=== PATIENT | male | born 1980 | race Caucasian/White ===

== ENCOUNTER 2017-07-03 09:15 | Emergency (ER) | payer SELFPAY ==
[~2017-07-03 09:15] MED LIST: ASPI-1017 PO; CITA-141 PO; CITA-156 PO; DOCU-416 PO; HYDR-4309 PO; IBU800 PO; LIDO20SO MM; LOR5/325 PO; MULT-1177 PO; MULT-7 PO; OME20PT PO; OXYC5CAP21 PO; PAR20 PO; PEN250 PO; PER PO; TRA50 GT; TRAM-627 PO
--- NOTE | 2017-07-03 09:40 | ER Report ---
History and Physical Time Seen By MD: 09:40 Hx. of Stated Complaint: PATIENT REPORTS THAT HE NEEDS TO DETOX FROM ALCOHOL. HE REPORTS THAT HIS LAST DRINK WAS ABOUT AN HOUR BEFORE ARRIVAL TO ER HPI/ROS CHIEF COMPLAINT: I need detox HISTORY OF PRESENT ILLNESS: 37-year-old male, father of 4 children reports alcohol use since age 14 drinks approximately one plane of vodka per night and wakes up without a hangover. He is concerned for the welfare of his kids and would like to get clean from alcohol. He denies any other drugs. He states one of his children has disability problems and is very difficult to manage at home. He states he has not worked in over 6 years. He has full custody of his kids and would like to be the best father he can be. He has been the detox and rehabilitation before but it has not worked. He is here for detox today and denies other medical complaints. His last drink was approximate 2 hours prior to arrival. He usually drinks vodka as he understands that to be the cleanest form of alcohol and produces less of a hangover. No other concerns or complaints today. REVIEW OF SYSTEMS: Constitutional: No fever, no chills. Eyes: No discharge. ENT: No sore throat. Cardiovascular: No chest pain, no palpitations. Respiratory: No cough, no shortness of breath. Gastrointestinal: No abdominal pain, no vomiting. Genitourinary: No hematuria. Musculoskeletal: No back pain. Skin: No rashes. Neurological: No headache. Allergies: Coded Allergies: acetaminophen (Verified Adverse Reaction, Intermediate, ITCHING, 01/13/17) hydrocodone (Verified Adverse Reaction, Intermediate, ITCHING, 01/13/17) Home Meds Reported Medications Multivits,Ca,Minerals/Iron/FA (Thera M Plus Tablet) 1 Each Tablet, 1 TAB PO DAILY 01/15/17 Citalopram Hydrobromide (CITALOPRAM HBR) 40 Mg Tablet, 40 MG PO QDAY, #5 TAB 01/15/17 Hx Smoking: Yes Smoking Status: Current: Every Day Smoker Exposure to Second Hand Smoke?: No Hx Substance Use Disorder: No Hx Alcohol Use: Yes (1 PINT DAILY) Constitutional Vital Sign - Last 24 Hours 07/03/17 09:22 Temp 98.5 Pulse 106 Resp 20 B/P (MAP) 154/106 Pulse Ox 92 O2 Delivery Room Air Physical Exam General Appearance: The patient is alert, has no immediate need for airway protection and no signs of toxicity. No acute distress Eyes: Pupils equal and round no pallor or injection. ENT, Mouth: Mucous membranes are moist. Respiratory: There are no retractions, lungs are clear to auscultation. Cardiovascular: Regular rate and rhythm. No murmurs gallops or rubs Gastrointestinal: Abdomen is soft and non tender, no masses, bowel sounds normal. Neurological: Normal exam Skin: Warm and dry, no rashes. Musculoskeletal: Neck is supple non tender. Extremities are nontender, nonswollen and have full range of motion. No edema DIFFERENTIAL DIAGNOSIS: After history and physical exam differential diagnosis was considered for alcohol dependence, alcohol intoxication, polysubstance abuse not suspected at this time. No signs of acute alcohol withdrawal at this time. Medical Decision Making Data Points Result Diagram: 07/03/17 0938 07/03/17 0938 Laboratory Hematology Test 07/03/17 09:19 07/03/17 09:38 Urine Color Yellow Urine Clarity Clear Urine pH 5.0 pH (4.8-9.5) Urine Specific [place] 1.018 Urine Protein 30 mg/dL (NEGATIVE) Urine Glucose (UA) Negative mg/dL (NEGATIVE) Urine Ketones 20 mg/dL (NEGATIVE) Urine Blood Small (NEGATIVE) Urine Nitrite Negative (NEGATIVE) Urine Bilirubin Negative (NEGATIVE) Urine Urobilinogen Negative mg/dL (0.2-1.9) Urine Leukocyte Esterase Negative (NEGATIVE) Urine RBC <1 /HPF (0-2/HPF) Urine WBC 3 /HPF (0-5/HPF) Urine Squamous Epithelial Cells Few /LPF (</=FEW) Urine Bacteria Negative /HPF (NONE-FEW) Urine Hyaline Casts Few /LPF (NONE-FEW) Urine Mucus Few /HPF (NONE-FEW) Urine Opiates Screen Negative Urine Barbiturates Screen Negative Ur Tricyclic Antidepressants Screen Negative Urine Phencyclidine Screen Negative Urine Amphetamines Screen Negative Urine Benzodiazepines Screen Negative Urine Cocaine Screen Negative Urine Cannabinoids Screen Positive Red Blood Count 5.42 M/uL (4.00-5.60) Mean Corpuscular Volume 97.3 fL (80.0-96.0) Mean Corpuscular Hemoglobin 33.5 pg (26.0-33.0) Mean Corpuscular Hemoglobin Concent 34.5 g/dL (32.0-36.0) Red Cell Distribution Width 14.5 % (11.5-14.5) Mean Platelet Volume 9.0 fL (7.2-11.1) Neutrophils (%) (Auto) 76.8 % (39.4-72.5) Lymphocytes (%) (Auto) 15.0 % (17.6-49.6) Monocytes (%) (Auto) 6.4 % (4.1-12.4) Eosinophils (%) (Auto) 1.1 % (0.4-6.7) Basophils (%) (Auto) 0.7 % (0.3-1.4) Nucleated RBC Relative Count (auto) 0.0 /100WBC Neutrophils # (Auto) 9.9 K/uL (2.0-7.4) Lymphocytes # (Auto) 1.9 K/uL (1.3-3.6) Monocytes # (Auto) 0.8 K/uL (0.3-1.0) Eosinophils # (Auto) 0.1 K/uL (0.0-0.5) Basophils # (Auto) 0.1 K/uL (0.0-0.1) Nucleated RBC Absolute Count (auto) 0.01 K/uL Sodium Level 141 mmol/L (137-145) Potassium Level 3.7 mmol/L (3.5-5.0) Chloride Level 100 mmol/L (98-107) Carbon Dioxide Level 22 mmol/L (22-30) Blood Urea Nitrogen 10 mg/dl (9-21) Creatinine 0.80 mg/dl (0.66-1.25) Glomerular Filtration Rate Calc > 60.0 Random Glucose 86 mg/dl (75-110) Calcium Level 9.0 mg/dl (8.4-10.2) Total Bilirubin 0.6 mg/dl (0.2-1.3) Aspartate Amino Transf (AST/SGOT) 59 U/L (0-35) Alanine Aminotransferase (ALT/SGPT) 115 U/L (0-56) Alkaline Phosphatase 121 U/L (0-126) Total Protein 8.1 gm/dl (6.3-8.2) Albumin 4.6 g/dl (3.5-5.0) Lipase 274 U/L (23-300) Salicylates Level < 10 mg/L Salicylate Last Dose Date unknown Acetaminophen Level < 10 ug/ml Serum Alcohol 208 mg/dl Chemistry Test 07/03/17 09:19 07/03/17 09:38 Urine Color Yellow Urine Clarity Clear Urine pH 5.0 pH (4.8-9.5) Urine Specific [place] 1.018 Urine Protein 30 mg/dL (NEGATIVE) Urine Glucose (UA) Negative mg/dL (NEGATIVE) Urine Ketones 20 mg/dL (NEGATIVE) Urine Blood Small (NEGATIVE) Urine Nitrite Negative (NEGATIVE) Urine Bilirubin Negative (NEGATIVE) Urine Urobilinogen Negative mg/dL (0.2-1.9) Urine Leukocyte Esterase Negative (NEGATIVE) Urine RBC <1 /HPF (0-2/HPF) Urine WBC 3 /HPF (0-5/HPF) Urine Squamous Epithelial Cells Few /LPF (</=FEW) Urine Bacteria Negative /HPF (NONE-FEW) Urine Hyaline Casts Few /LPF (NONE-FEW) Urine Mucus Few /HPF (NONE-FEW) Urine Opiates Screen Negative Urine Barbiturates Screen Negative Ur Tricyclic Antidepressants Screen Negative Urine Phencyclidine Screen Negative Urine Amphetamines Screen Negative Urine Benzodiazepines Screen Negative Urine Cocaine Screen Negative Urine Cannabinoids Screen Positive White Blood Count 12.8 k/uL (4.5-11.0) Red Blood Count 5.42 M/uL (4.00-5.60) Hemoglobin 18.2 g/dL (14.0-18.0) Hematocrit 52.8 % (42.0-52.0) Mean Corpuscular Volume 97.3 fL (80.0-96.0) Mean Corpuscular Hemoglobin 33.5 pg (26.0-33.0) Mean Corpuscular Hemoglobin Concent 34.5 g/dL (32.0-36.0) Red Cell Distribution Width 14.5 % (11.5-14.5) Platelet Count 258 K/uL (150-450) Mean Platelet Volume 9.0 fL (7.2-11.1) Neutrophils (%) (Auto) 76.8 % (39.4-72.5) Lymphocytes (%) (Auto) 15.0 % (17.6-49.6) Monocytes (%) (Auto) 6.4 % (4.1-12.4) Eosinophils (%) (Auto) 1.1 % (0.4-6.7) Basophils (%) (Auto) 0.7 % (0.3-1.4) Nucleated RBC Relative Count (auto) 0.0 /100WBC Neutrophils # (Auto) 9.9 K/uL (2.0-7.4) Lymphocytes # (Auto) 1.9 K/uL (1.3-3.6) Monocytes # (Auto) 0.8 K/uL (0.3-1.0) Eosinophils # (Auto) 0.1 K/uL (0.0-0.5) Basophils # (Auto) 0.1 K/uL (0.0-0.1) Nucleated RBC Absolute Count (auto) 0.01 K/uL Glomerular Filtration Rate Calc > 60.0 Calcium Level 9.0 mg/dl (8.4-10.2) Total Bilirubin 0.6 mg/dl (0.2-1.3) Aspartate Amino Transf (AST/SGOT) 59 U/L (0-35) Alanine Aminotransferase (ALT/SGPT) 115 U/L (0-56) Alkaline Phosphatase 121 U/L (0-126) Total Protein 8.1 gm/dl (6.3-8.2) Albumin 4.6 g/dl (3.5-5.0) Lipase 274 U/L (23-300) Salicylates Level < 10 mg/L Salicylate Last Dose Date unknown Acetaminophen Level < 10 ug/ml Serum Alcohol 208 mg/dl Toxicology Test 07/03/17 09:19 3 09:38 Urine Opiates Screen Negative Urine Barbiturates Screen Negative Ur Tricyclic Antidepressants Screen Negative Urine Phencyclidine Screen Negative Urine Amphetamines Screen Negative Urine Benzodiazepines Screen Negative Urine Cocaine Screen Negative Urine Cannabinoids Screen Positive Salicylates Level < 10 mg/L Salicylate Last Dose Date unknown Acetaminophen Level < 10 ug/ml Serum Alcohol 208 mg/dl Urinalysis Test 07/03/17 09:19 Urine Color Yellow Urine Clarity Clear Urine pH 5.0 pH (4.8-9.5) Urine Specific [place] 1.018 Urine Protein 30 mg/dL (NEGATIVE) Urine Glucose (UA) Negative mg/dL (NEGATIVE) Urine Ketones 20 mg/dL (NEGATIVE) Urine Blood Small (NEGATIVE) Urine Nitrite Negative (NEGATIVE) Urine Bilirubin Negative (NEGATIVE) Urine Urobilinogen Negative mg/dL (0.2-1.9) Urine Leukocyte Esterase Negative (NEGATIVE) Urine RBC <1 /HPF (0-2/HPF) Urine WBC 3 /HPF (0-5/HPF) Urine Squamous Epithelial Cells Few /LPF (</=FEW) Urine Bacteria Negative /HPF (NONE-FEW) Urine Hyaline Casts Few /LPF (NONE-FEW) Urine Mucus Few /HPF (NONE-FEW) ED Course/Re-evaluation ED Course Medically cleared in the ED; accepted for admission by Dr. Mora; plan is for detox Decision to Disposition Date: Jul 03, 2017 Decision to Disposition Time: 11:00 Depart Departure Latest Vital Signs Vital Signs Date Time Temp Pulse Resp B/P (MAP) Pulse Ox O2 Delivery O2 Flow Rate FiO2 07/03/17 09:22 98.5 106 20 154/106 92 Room Air Impression: Primary Impression: Alcohol use disorder, severe, dependence Condition: Improved Disposition: XFER TO [facility] FORTINO ZEE MD Jul 03, 2017 09:40
[2017-07-03] MEDS ORDERED: THIAMINE HCL(*) 200 MG/2 ML IN 100 MG, FOLIC ACID(*) 50 MG/10 ML INJ 1 MG, MULTIVITAMIN... IV ONE (10:00)
[2017-07-03 10:08] LABS: PLATELET COUNT, AUTOMATED 258 K/uL (150-450)
[2017-07-03 11:00] VITALS: BP 121/90
== END 2017-07-03 11:22 ==
LOC: ER 09:31
DX: F10.229 Alcohol dependence with intoxication, unspecified (principal)
CPT/HCPCS: 80305; 80320; 80329; 81001; 83690; 84443; 85025; 96365; 99285; J3411; J7030; 82040; 82247; 82310; 82374; 82435; 82565; 82947; 84075; 84132; 84155; 84295; 84450; 84460; 84520

== ENCOUNTER 2017-07-03 11:02 | Inpatient (IN) | payer SELFPAY ==
[~2017-07-03] VITALS: Ht 170.2 cm; Wt 83.9 kg
[2017-07-03 11:41] VITALS: BP 138/94
[2017-07-03] MEDS ORDERED: MAG HYD/AL HYD/SIMETH 30ML UDC PO PRN (11:50)
[2017-07-03] MEDS: DIAZEPAM 20 MG PER CIWA PROTOCOL PO PRN ×2 (16:17→21:45)
[2017-07-03] MEDS ORDERED: CITALOPRAM HYDROBROM 20 MG TAB PO ONE (18:05)
[2017-07-04 04:00] VITALS: BP 142/89
[2017-07-04] MEDS: DIAZEPAM 20 MG PER CIWA PROTOCOL PO PRN (04:10)
[2017-07-04 08:05] VITALS: BP 154/83
[2017-07-04] MEDS: THIAMINE HCL 100 MG TAB PO SCH (08:25)
[2017-07-04] MEDS: MULTIVITAMINS PO SCH (08:25)
[2017-07-04] MEDS: FOLIC ACID 1 MG TAB PO SCH (08:25)
[2017-07-04] MEDS: CITALOPRAM HYDROBROM 20 MG TAB PO SCH (08:26)
[2017-07-04 12:00] VITALS: BP 140/88
[2017-07-04 16:20] VITALS: BP 134/98
[2017-07-05 01:30] VITALS: BP 138/94
[2017-07-05] MEDS: FOLIC ACID 1 MG TAB PO SCH (08:21)
[2017-07-05] MEDS: CITALOPRAM HYDROBROM 20 MG TAB PO SCH (08:21)
[2017-07-05] MEDS: THIAMINE HCL 100 MG TAB PO SCH (08:21)
[2017-07-05] MEDS: MULTIVITAMINS PO SCH (08:21)
[2017-07-05 08:30] VITALS: BP 124/92
--- NOTE | 2017-07-05 09:36 | BHS Progress Note ---
[facility] - Subjective Progress Notes Subjective Patient continues in alcohol withdrawal, which appears mild up until this point. Mood reported good, interacting well with treatment team staff, and his Mother present. No other concerns today, will plan for discharge tomorrow, after alcohol withdrawal is complete. Will work to establish effective outpatient care today. Suicidal Ideation: None Homicidal Ideation: None [facility] - Objective Physical Exam Vital Signs Vital Signs Date Time Temp Pulse Resp B/P (MAP) Pulse Ox O2 Delivery O2 Flow Rate FiO2 07/05/17 08:30 98.5 79 16 124/92 (103) 97 Room Air Hematology Test 07/04/17 11:20 Chemistry Test 07/04/17 11:20 Muscle Strength and Tone: WNL Gait and Station: Steady [facility] Medications Reviewed: Side Effects, Benefits of Medication, Risks Allergies Reviewed: Yes Mental Status Exam General Appearance: Casual, Well Groomed, Good Eye Contact, Cooperative, Polite , Good Interaction, No Unkept, No Tearful, No Psychomotor Agitation, No Psychomotor Retardation, No Bizarre Mannerisms, No Tics Speech: Clear, Spontaneous, Normal Rate, Normal Rhythm, Normal Volume, Normal Tone, No Garbled, No Rambling, No Inappropriate Mood: Euthymic Affect: Full and Appropriate, Calm, No Tearful, No Anxious, No Agitated Thought Process: Organized, Logical, Goal Directed, No Loose Associations, No Flight of Ideas Thought Content: No Suicidal Ideation, No Homicidal Ideation, No Delusions, No Auditory Halllucinations, No Visual Hallucinations, No Thought Broadcasting, No Ideas of Reference, No Obsessions, No Compulsions Sensorium: Clear Cognition: Alert & Oriented-Person, Alert & Oriented-Place, Alert & Oriented- Time, Xyryj-[id number]-Ovwbwhvun Memory: Immediate, Recent, Remote Intelligence: Average Insight Judgment: Fair (some maladaptive stress coping mechanisms certainly exist, rule out personality disorder. ) [facility] Assessment and Plan [id number] Encounter Date: Jul 05, 2017 [id number] Encounter Time: 09:20 [facility] Plan: Necessary Precautions, Individual/Group Therapy, Admin/Titrate Meds, Educate Patient Tobacco Medications: Started Multpiple Antipsychotics Used: No Problems: (1) Alcohol withdrawal Status: Acute (2) Alcohol use disorder, severe, dependence Status: Chronic (3) Cannabis use disorder, moderate, dependence Condition 1. continue treatment. 2. plan for discharge tomorrow. 3. outpatient care. Problem Qualifiers (1) Alcohol withdrawal: Complication of substance-induced condition: uncomplicated Qualified Codes: F10.230 - Alcohol dependence with withdrawal, uncomplicated FLEX TINSLEY MD Jul 05, 2017 09:36
[2017-07-05 12:40] VITALS: BP 140/98
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
[2017-07-06 04:30] VITALS: BP 136/107
[2017-07-06] MEDS: FOLIC ACID 1 MG TAB PO SCH (08:21)
[2017-07-06] MEDS: CITALOPRAM HYDROBROM 20 MG TAB PO SCH (08:21)
[2017-07-06] MEDS: THIAMINE HCL 100 MG TAB PO SCH (08:21)
[2017-07-06] MEDS: MULTIVITAMINS PO SCH (08:21)
[2017-07-06] MEDS ORDERED: FOLI-68 PO (10:19)
[2017-07-06] MEDS ORDERED: THIA100T2 PO (10:20)
--- NOTE | 2017-07-07 23:12 | DISCHARGE SUMMARY ---
DATE OF ADMISSION: July 03, 2017 DATE OF DISCHARGE: July 06, 2017 This patient was seen concerning this dictation on the June at approximately 1030 hours. FINAL DIAGNOSES PER DSM-V 1. Alcohol use disorder, moderate to severe. 2. Cannabis use disorder, moderate. 3. History of persisting depressive disorder. 4. Social stressors. REASON FOR ADMISSION This is an overall polite, 37-year-old male who is suffering from alcohol use disorder. The primary reason for the patient's admit was alcohol withdrawal. This was treated to completion with diazepam for [facility] protocol. It was minimal to moderate in nature. The patient continued to take an active role in his treatment overall. The patient at times was interacting at a very immature level overall regarding age. The patient had not worked in over a decade. The patient is relying on government support. The patient continued to improve. The patient indicated the desire to continue to abstain and would attend IOP at [facility] as well as therapy and medication management. He was given the crisis line should symptoms return. PHYSICAL EXAMINATION Please see emergency room note. Notable for: GENERAL: A 37-year-old male in no acute medical distress. VITAL SIGNS: At time of admission, temperature 98.5, pulse 106, respiratory rate 20, blood pressure 154/106, and pulse oximetry 92% on room air. At time of discharge from the Behavioral Health Unit, vital signs showed temperature 98.0, pulse 61, respiratory rate 15, blood pressure 136/107, and pulse oximetry 92% on room air. LABORATORY DATA At time of admission, CBC was notable for white blood cells elevated at 12.8, hemoglobin and hematocrit elevated at 18.2 and 52.8 respectively, MCV 97.3, and MCH 33.5 and elevated. Chemistry panel was notable for AST elevated at 59 and ALT elevated at 115. TSH was 1.08. Urinalysis did have trace ketones present, and some urine protein present as well. Toxicology screen positive for cannabis. Serum alcohol level was 208 upon admission. Negative for other substances of abuse. PPD was negative. MENTAL STATUS EXAMINATION AT TIME OF DISCHARGE GENERAL APPEARANCE, BEHAVIOR, AND ATTITUDE: Polite, cooperative, 37-year-old male, well groomed, appeared stated age. No psychomotor agitation or retardation. No bizarre mannerisms or tics. The patient continued to interact in a general infantile manner concerning life responsibilities throughout stay; however, the patient was very calm, pleasant, and cooperative, and he was taking an active role in his treatment. No periods of tearfulness at time of discharge. SPEECH: Within normal limits. Regular rate, rhythm, volume, and tone. MOOD: Described as good. AFFECT: Full and bright. THOUGHT PROCESSES: Logical, goal directed. No loose associations or flight of ideas. THOUGHT CONTENT: Free of auditory or visual hallucinations, ideas of reference , thought broadcasting, delusions, obsessions, or compulsions. The patient is adamantly denying suicidal or homicidal ideation. SENSORIUM: Clear. COGNITION: Alert and oriented to person, place, time, and situation. MEMORY: Immediate, recent, and remote estimated intact. INTELLIGENCE: Average based on interview. INSIGHT AND JUDGMENT: Considered grossly intact in the absence of alcohol or cannabis use. RESULTS OF TESTING IMAGING: None. LABORATORY DATA: See above. CONSULTATIONS None. TREATMENT The patient received medications and participated in individual and group therapy. HOSPITAL COURSE The patient's alcohol withdrawal was considered minimal in nature overall. It was treated to completion with diazepam per [facility] protocol. The patient continued to improve. The patient remained on outpatient dose of Celexa at 40 mg p.o. q.a.m. with good results. The patient did take an active role, engaging with individual and group therapy. CONDITION OF PATIENT ON DISCHARGE Stable. Considered a minimal risk to himself or others and appropriate for outpatient care in the absence of alcohol or cannabis use. DISPOSITION The patient was discharged to home. He would follow up with [facility] at [facility] for therapy and medication management. He was given the crisis line should symptoms return. He agreed to abstain from all alcohol and illicit substances and would take Celexa 40 mg p.o. q.a.m. Risks, benefits, and alternatives of above discharge plan were discussed. Informed consent was given to proceed with above discharge plan by this competent patient. JOHN PAUL
== END 2017-07-06 11:10 | disposition home or self-care (01) | DRG 897 ==
LOC: BHS 11:02
PROVIDERS: ADMIT Psychiatry & Neurology Psychiatry; ATTEND Psychiatry & Neurology Psychiatry
DX: F10.230 Alcohol dependence with withdrawal, uncomplicated (principal); F34.1 Dysthymic disorder; F12.20 Cannabis dependence, uncomplicated; Y90.7 Blood alcohol level of 200-239 mg/100 ml; Z62.810 Personal history of physical and sexual abuse in childhood; Z88.5 Allergy status to narcotic agent; Z91.410 Personal history of adult physical and sexual abuse
CPT/HCPCS: 86580; 90853

== ENCOUNTER 2017-07-26 18:56 | Emergency (ER) | payer SELFPAY ==
[~2017-07-26 18:56] MED LIST changes: +FOLI-68 PO; +THIA100T2 PO
[2017-07-26] MEDS ORDERED: ASPIRIN 81 MG CHEW PO ONE (19:40)
--- NOTE | 2017-07-26 19:40 | ER Report ---
History and Physical Time Seen By MD: 19:26 Hx. of Stated Complaint: PT REPORTS THAT HE IS GOING THROUGH [facility]. HAS NOT HAD ANY ALCOHOL SINCE LAST MONDAY. REPORTS CHEST PAIN, VISUAL HALLUCINATIONS, AND MUSCLE ACHES. HPI/ROS CHIEF COMPLAINT: Chest pain HISTORY OF PRESENT ILLNESS: 37-year-old male patient presents to emergency room with complaint of chest pain. Patient states that he isn't alcoholic, he recently got discharged from [facility] with detox. He states that he was doing well until last week. He states he had 2 days raise drinking a pint of hard liquor a day. Patient states that he went and saw IOP through [facility] today. They recommended he come up here because he is complaining of chest pain. Patient states he has chest pain that is substernal he rates a 5 out of 10. He states it is improved is currently 2 out of 10. States been going on for last couple of days. He denies having any shortness of breath. He states he has had some nausea and vomiting. Patient is concerned that he may have pancreatitis. He is not taking any medication for this. He states that he does not want to be admitted for alcohol detox to [facility]. REVIEW OF SYSTEMS: Respiratory: No cough, no dyspnea. Cardiovascular: As noted above Gastrointestinal: Patient has had some episodes of vomiting. Musculoskeletal: No back pain. Allergies: Coded Allergies: acetaminophen (Verified Adverse Reaction, Intermediate, ITCHING, 07/26/17) hydrocodone (Verified Adverse Reaction, Intermediate, ITCHING, 07/26/17) Home Meds Active Scripts Omeprazole (OMEPRAZOLE) 40 Mg Capsule., 40 MG PO QDAY, #15 CAP Prov:BANDAR VILLASENOR 07/26/17 Reported Medications Thiamine Mononitrate (VITAMIN B-1) 100 Mg Tablet, 100 MG PO Purchase over the counter. Take for 1 month 07/06/17 Folic Acid (FOLIC ACID) 1 Mg Tablet, 1 MG PO QDAY, TAB Purchase over the counter. Take for 1 month 07/06/17 Multivits,Ca,Minerals/Iron/FA (Thera M Plus Tablet) 1 Each Tablet, 1 TAB PO DAILY 01/15/17 Citalopram Hydrobromide (CITALOPRAM HBR) 40 Mg Tablet, 40 MG PO QDAY, #30 TAB 1 Refill 01/15/17 Past Medical/Surgical History Patient has a past medical history of asthma, pancreatitis, fractured feet, psoriasis, alcohol abuse, depression, anxiety. Patient has a surgical history of hernia repair, cyst removed from armpit, back , chest. Patient has a family medical history of CAD. Reviewed Nurses Notes: Yes Hx Smoking: No Smoking Status: Current: Every Day Smoker Exposure to Second Hand Smoke?: No Hx Substance Use Disorder: No Hx Alcohol Use: Yes Constitutional Vital Sign - Last 24 Hours 07/26/17 07/26/17 07/26/17 07/26/17 19:01 19:15 19:30 19:45 Temp 98.2 Pulse 57 60 60 59 Resp 16 17 16 16 B/P (MAP) 129/93 Pulse Ox 93 94 93 91 O2 Delivery Room Air 07/26/17 07/26/17 07/26/17 07/26/17 20:00 20:15 20:30 20:45 Pulse 60 61 59 61 Resp 15 13 16 16 B/P (MAP) 120/70 (87) Pulse Ox 93 94 93 93 07/26/17 07/26/17 07/26/17 21:00 21:15 21:19 Pulse 54 Resp 16 15 B/P (MAP) 122/85 (97) Pulse Ox 95 Physical Exam General Appearance: The patient is alert, has no immediate need for airway protection and no current signs of toxicity. ENT: Tympanic membranes are pearly-cantu, auditory canals are patent, mucous membranes are moist. Respiratory: Chest is non tender, lungs are clear to auscultation. Cardiac: regular rate and rhythm Gastrointestinal: Abdomen is soft and tender in the epigastric region, no masses , bowel sounds normal. Musculoskeletal: Neck: Neck is supple and non tender. Extremities have full range of motion and are non tender. Skin: No rashes or lesions. DIFFERENTIAL DIAGNOSIS: After history and physical exam differential diagnosis was considered for chest pain including but not limited to myocardial ischemia, pericarditis pulmonary embolus, chest wall pain, pleural inflammation and pulmonary infectious causes. The differential is pancreatitis, alcohol intoxication, alcohol induced gastritis. Medical Decision Making Data Points Result Diagram: 07/26/17201807/26/172018 Laboratory Hematology Test 07/26/17 20:19 Red Blood Count 5.13 M/uL (4.00-5.60) Mean Corpuscular Volume 96.9 fL (80.0-96.0) Mean Corpuscular Hemoglobin 33.9 pg (26.0-33.0) Mean Corpuscular Hemoglobin Concent 34.9 g/dL (32.0-36.0) Red Cell Distribution Width 14.2 % (11.5-14.5) Mean Platelet Volume 9.7 fL (7.2-11.1) Neutrophils (%) (Auto) 72.6 % (39.4-72.5) Lymphocytes (%) (Auto) 16.8 % (17.6-49.6) Monocytes (%) (Auto) 7.6 % (4.1-12.4) Eosinophils (%) (Auto) 2.4 % (0.4-6.7) Basophils (%) (Auto) 0.6 % (0.3-1.4) Nucleated RBC Relative Count (auto) 0.0 /100WBC Neutrophils # (Auto) 6.7 K/uL (2.0-7.4) Lymphocytes # (Auto) 1.6 K/uL (1.3-3.6) Monocytes # (Auto) 0.7 K/uL (0.3-1.0) Eosinophils # (Auto) 0.2 K/uL (0.0-0.5) Basophils # (Auto) 0.1 K/uL (0.0-0.1) Nucleated RBC Absolute Count (auto) 0.00 K/uL Sodium Level 136 mmol/L (137-145) Potassium Level 3.8 mmol/L (3.5-5.0) Chloride Level 100 mmol/L (98-107) Carbon Dioxide Level 29 mmol/L (22-30) Blood Urea Nitrogen 10 mg/dl (9-21) Creatinine 0.90 mg/dl (0.66-1.25) Glomerular Filtration Rate Calc > 60.0 Random Glucose 92 mg/dl (75-110) Calcium Level 9.4 mg/dl (8.4-10.2) Total Bilirubin 0.6 mg/dl (0.2-1.3) Aspartate Amino Transf (AST/SGOT) 60 U/L (0-35) Alanine Aminotransferase (ALT/SGPT) 71 U/L (0-56) Alkaline Phosphatase 71 U/L (0-126) Troponin I < 0.012 ng/ml Total Protein 7.4 gm/dl (6.3-8.2) Albumin 4.1 g/dl (3.5-5.0) Amylase Level 80 U/L (0-110) Lipase 298 U/L (23-300) Serum Alcohol < 10 mg/dl Chemistry Test 07/26/17 20:19 White Blood Count 9.3 k/uL (4.5-11.0) Red Blood Count 5.13 M/uL (4.00-5.60) Hemoglobin 17.4 g/dL (14.0-18.0) Hematocrit 49.7 % (42.0-52.0) Mean Corpuscular Volume 96.9 fL (80.0-96.0) Mean Corpuscular Hemoglobin 33.9 pg (26.0-33.0) Mean Corpuscular Hemoglobin Concent 34.9 g/dL (32.0-36.0) Red Cell Distribution Width 14.2 % (11.5-14.5) Platelet Count 160 K/uL (150-450) Mean Platelet Volume 9.7 fL (7.2-11.1) Neutrophils (%) (Auto) 72.6 % (39.4-72.5) Lymphocytes (%) (Auto) 16.8 % (17.6-49.6) Monocytes (%) (Auto) 7.6 % (4.1-12.4) Eosinophils (%) (Auto) 2.4 % (0.4-6.7) Basophils (%) (Auto) 0.6 % (0.3-1.4) Nucleated RBC Relative Count (auto) 0.0 /100WBC Neutrophils # (Auto) 6.7 K/uL (2.0-7.4) Lymphocytes # (Auto) 1.6 K/uL (1.3-3.6) Monocytes # (Auto) 0.7 K/uL (0.3-1.0) Eosinophils # (Auto) 0.2 K/uL (0.0-0.5) Basophils # (Auto) 0.1 K/uL (0.0-0.1) Nucleated RBC Absolute Count (auto) 0.00 K/uL Glomerular Filtration Rate Calc > 60.0 Calcium Level 9.4 mg/dl (8.4-10.2) Total Bilirubin 0.6 mg/dl (0.2-1.3) Aspartate Amino Transf (AST/SGOT) 60 U/L (0-35) Alanine Aminotransferase (ALT/SGPT) 71 U/L (0-56) Alkaline Phosphatase 71 U/L (0-126) Troponin I < 0.012 ng/ml Total Protein 7.4 gm/dl (6.3-8.2) Albumin 4.1 g/dl (3.5-5.0) Amylase Level 80 U/L (0-110) Lipase 298 U/L (23-300) Serum Alcohol < 10 mg/dl Toxicology Test 07/26/17 20:19 Serum Alcohol < 10 mg/dl EKG/Imaging EKG Interpretation 12 lead EKG: Rhythm: normal sinus rhythm [place]: normal QRS: normal ST segments: normal Imaging 2 VIEWS CHEST INDICATION: Chest pain COMPARISON: 05/05/2016. FINDINGS: Cardiomediastinal silhouette and pulmonary vessels within normal limits. There is no focal infiltrate or lobar consolidation. There is no pneumothorax or pleural effusion. No nodule. Upper abdomen is unremarkable. No acute bony abnormality. IMPRESSION: 1. No acute cardiopulmonary process. Report Dictated By: Vinicio Maynard at 07/26/2017 8:29 PM Report E-Signed By: Vinicio Maynard at 07/26/2017 8:31 PM ED Course/Re-evaluation ED Course Patient was admitted to examine, history and physical were obtained. Differential diagnoses were considered. On examination patient had some epigastric abdominal pain. A CBC, CMP, amylase, lipase, troponin, EKG, chest x- ray were done. Chest x-ray was negative, EKG showed a normal sinus rhythm, lab results were negative. I discussed findings with the patient. I believe the patient's having epigastric pain which caused by an alcohol-induced gastritis. Patient had been sober for 3 weeks and then had a 2 day ren, weight is drinking a pint of vodka a day. I believe that caused his abdominal discomfort. We'll go ahead and start him on a PPI. He will receive Protonix to the emergency room and they will take omeprazole for the next 2 weeks. He is to follow-up with his primary care provider. He is return to the emergency room condition worsens. Patient verbalized understanding and agreement with plan. Decision to Disposition Date: Jul 26, 2017 Decision to Disposition Time: 21:15 Depart Departure Latest Vital Signs Vital Signs Date Time Temp Pulse Resp B/P (MAP) Pulse Ox O2 Delivery O2 Flow Rate FiO2 07/26/17 21:19 122/85 (97) 07/26/17 21:15 54 15 95 07/26/17 19:01 98.2 Room Air Impression: Primary Impression: Gastritis Condition: Improved Disposition: HOME OR SELF-CARE New Scripts Omeprazole (OMEPRAZOLE) 40 Mg Capsule. 40 MG PO QDAY, #15 CAP Prov: BANDAR VILLASENOR 07/26/17 Patient Instructions: Gastritis (ED) Additional Instructions: Increase fluid intake. Get plenty of rest. Follow up with your primary care provider in the next week. Return to the ER if condition worsens. Take medication as prescribed. Try a bland diet for the next 2-3 days. Problem Qualifiers Primary Impression: Gastritis Gastritis type: alcoholic Chronicity: acute Gastritis bleeding: without bleeding Qualified Codes: K29.20 - Alcoholic gastritis without bleeding BANDAR VILLASENOR Jul 26, 2017 19:40
--- NOTE | 2017-07-26 20:24 | EKG ---
FACILITY: [facility] [place] PATIENT NAME: SEAN WHITING : [id number] MR: [id number] V: [id number] EXAM DATE: ORDERING PHYSICIAN: BANDAR VILLASENOR TECHNOLOGIST: FATMATA Test Reason : CP Blood Pressure : / mmHG Vent. Rate : 060 BPM Atrial Rate : 060 BPM P-R Int : 146 ms QRS Dur : 084 ms QT Int : 434 ms P-R-T Axes : 039 -14 035 degrees QTc Int : 434 ms Normal sinus rhythm Nonspecific T wave abnormality Abnormal ECG When compared with ECG of 05-MAY-2016 13:19, No significant change was found Confirmed by RAMONITA GARCIA ([id number]) on 07/27/2017 2:18:04 PM Referred By: Confirmed By:RAMONITA GARCIA
[2017-07-26 20:28] LABS: PLATELET COUNT, AUTOMATED 160 K/uL (150-450)
--- NOTE | 2017-07-26 20:36 | RADIOLOGY IMAGING REPORT ---
FACILITY: [facility] [place] PATIENT NAME: Rashaad Nichole : 1980 MR: [id number] V: [id number] EXAM DATE: ORDERING PHYSICIAN: BANDAR VILLASENOR TECHNOLOGIST: Location: [facility] [place] Patient: Rashaad Nichole : 1980 Visit/Account:[id number] Date of Sevice: 07/26/2017 2 VIEWS CHEST INDICATION: Chest pain COMPARISON: 05/05/2016. FINDINGS: Cardiomediastinal silhouette and pulmonary vessels within normal limits. There is no focal infiltrate or lobar consolidation. There is no pneumothorax or pleural effusion. No nodule. Upper abdomen is unremarkable. No acute bony abnormality. IMPRESSION: 1. No acute cardiopulmonary process. Report Dictated By: Vinicio Maynard at 07/26/2017 8:29 PM Report E-Signed By: Vinicio Maynard at 07/26/2017 8:31 PM WSN:[id number]
[2017-07-26] MEDS ORDERED: OMEP40CA48 PO (21:14)
[2017-07-26] MEDS ORDERED: PANTOPRAZOLE SOD 40 MG TABEC PO ONE (21:15)
[2017-07-26 21:19] VITALS: BP 122/85
== END 2017-07-26 21:21 | disposition home or self-care (01) ==
LOC: ER 19:14
DX: K29.20 Alcoholic gastritis without bleeding (principal); R94.31 Abnormal electrocardiogram [ECG] [EKG]
CPT/HCPCS: 71046; 80320; 82040; 82150; 82247; 82310; 82374; 82435; 82565; 82947; 83690; 84075; 84132; 84155; 84295; 84450; 84460; 84484; 84520; 85025; 93005; 99284

== ENCOUNTER 2017-08-28 07:18 | Inpatient (IN) | payer MEDICAID ==
[~2017-08-28] VITALS: Ht 170.2 cm; Wt 77.6 kg
[~2017-08-28 07:18] MED LIST changes: +OMEP40CA48 PO
--- NOTE | 2017-08-28 07:22 | ER Report ---
History and Physical Time Seen By MD: 07:21 HPI/ROS CHIEF COMPLAINT: epigastric pain, concerned about pancreatitis HISTORY OF PRESENT ILLNESS: This is a 37 year old male. He has been having several days of epigastric abdominal pain. He has a history of alcoholic pancreatitis and gastritis in the past and was worried this was a repeat episode of pancreatitis. He had a binge of alcohol last week, last drink was on Monday. Had some vomiting and diarrhea prior to that. He denies any diarrhea the last few days, but has not really had much bowel movement. Only a small amount of urination over the last 24 hours and is dark. Has only been able to keep a small amount of PowerAid and water down. Not able to eat. Had also been taking Ibuprofen the last few days to try and help the pain. No blood in stools or emesis. No fevers, but he has had some chills. Denies chest pain. Denies shortness of breath. Allergies: Coded Allergies: acetaminophen (Verified Adverse Reaction, Intermediate, ITCHING, 07/26/17) hydrocodone (Verified Adverse Reaction, Intermediate, ITCHING, 07/26/17) Home Meds Active Scripts Omeprazole (OMEPRAZOLE) 40 Mg Capsule., 40 MG PO QDAY, #15 CAP Prov:JACKLYNBANDAR ANJALI 07/26/17 Reported Medications Ibuprofen (IBUPROFEN) 200 Mg Capsule, 1 CAP PO Q2H Y for PAIN, CAPSULE 08/28/17 Magnesium Oxide (MAGNESIUM) 250 Mg Tablet, 250 MG PO QDAY 08/28/17 Thiamine Mononitrate (VITAMIN B-1) 100 Mg Tablet, 100 MG PO Purchase over the counter. Take for 1 month 07/06/17 Folic Acid (FOLIC ACID) 1 Mg Tablet, 1 MG PO QDAY, TAB Purchase over the counter. Take for 1 month 07/06/17 Multivits,Ca,Minerals/Iron/FA (Thera M Plus Tablet) 1 Each Tablet, 1 TAB PO DAILY 01/15/17 Citalopram Hydrobromide (CITALOPRAM HBR) 40 Mg Tablet, 40 MG PO QDAY, #30 TAB 1 Refill 01/15/17 Reviewed Nurses Notes: Yes Hx Smoking: No Smoking Status: Current: Every Day Smoker Exposure to Second Hand Smoke?: No Hx Substance Use Disorder: No Hx Alcohol Use: Yes Constitutional Vital Sign - Last 24 Hours 08/28/17 08/28/17 08/28/17 08/28/17 07:23 07:30 08:00 08:08 Temp 97.8 Pulse 99 92 Resp 18 B/P (MAP) 148/105 126/101 (109) 138/126 (130) 162/109 (126) Pulse Ox 99 98 O2 Delivery Room Air 08/28/17 08/28/17 08/28/17 08/28/17 08:18 08:39 09:00 09:15 Pulse 67 63 B/P (MAP) 149/112 (124) 131/99 (110) Pulse Ox 98 98 O2 Flow Rate 2.0 08/28/17 08/28/17 08/28/17 08/28/17 09:20 09:25 09:30 09:35 Pulse 64 ??? 66 60 B/P (MAP) 133/95 (108) Pulse Ox 98 100 98 98 08/28/17 08/28/17 09:40 09:41 Pulse 64 B/P (MAP) 120/94 (103) Pulse Ox 98 Physical Exam General Appearance: The patient is alert. He is in some acute distress because of pain and nausea. Eyes: Pupils are equal, round. No pallor, injection or icterus. ENT: Mucous membranes are moist. Normal oral mucosa. Posterior oropharynx is normal. Neck: Supple and non tender. Respiratory: Lungs are clear to auscultation. Cardiovascular: Regular rate and rhythm. No murmurs, gallops or rubs. Normal capillary refill. Gastrointestinal: Abdomen is soft, but tender in epigastric area. Nondistended. No rebound or guarding. Normal active bowel sounds. No costovertebral angle tenderness with percussion. Neurological: Alert and oriented x3. No focal neurologic deficits Skin: Warm and dry. DIFFERENTIAL DIAGNOSIS: After history and physical exam, differential diagnosis was considered for epigastric pain including but not limited to biliary colic, cholecystitis, peptic ulcer disease, pancreatitis, and gastroenteritis. Medical Decision Making Data Points Result Diagram: 08/28/17 0727 08/28/17 0727 Laboratory Hematology Test 08/28/17 07:27 08/28/17 08:10 Red Blood Count 5.92 M/uL (4.00-5.60) Mean Corpuscular Volume 95.0 fL (80.0-96.0) Mean Corpuscular Hemoglobin 32.9 pg (26.0-33.0) Mean Corpuscular Hemoglobin Concent 34.6 g/dL (32.0-36.0) Red Cell Distribution Width 14.2 % (11.5-14.5) Mean Platelet Volume 9.9 fL (7.2-11.1) Neutrophils (%) (Auto) 81.3 % (39.4-72.5) Lymphocytes (%) (Auto) 10.7 % (17.6-49.6) Monocytes (%) (Auto) 5.5 % (4.1-12.4) Eosinophils (%) (Auto) 1.5 % (0.4-6.7) Basophils (%) (Auto) 1.0 % (0.3-1.4) Nucleated RBC Relative Count (auto) 0.1 /100WBC Neutrophils # (Auto) 7.5 K/uL (2.0-7.4) Lymphocytes # (Auto) 1.0 K/uL (1.3-3.6) Monocytes # (Auto) 0.5 K/uL (0.3-1.0) Eosinophils # (Auto) 0.1 K/uL (0.0-0.5) Basophils # (Auto) 0.1 K/uL (0.0-0.1) Nucleated RBC Absolute Count (auto) 0.01 K/uL Peripheral Blood Smear Yes Y/N Sodium Level 136 mmol/L (137-145) Potassium Level 2.9 mmol/L (3.5-5.0) Chloride Level 91 mmol/L (98-107) Carbon Dioxide Level 29 mmol/L (22-30) Blood Urea Nitrogen 8 mg/dl (9-21) Creatinine 0.80 mg/dl (0.66-1.25) Glomerular Filtration Rate Calc > 60.0 Random Glucose 99 mg/dl (75-110) Calcium Level 10.3 mg/dl (8.4-10.2) Total Bilirubin 2.9 mg/dl (0.2-1.3) Aspartate Amino Transf (AST/SGOT) 90 U/L (0-35) Alanine Aminotransferase (ALT/SGPT) 86 U/L (0-56) Alkaline Phosphatase 87 U/L (0-126) Total Protein 8.2 gm/dl (6.3-8.2) Albumin 4.9 g/dl (3.5-5.0) Amylase Level 159 U/L (0-110) Lipase 1119 U/L (23-300) Salicylates Level < 10 mg/L Salicylate Last Dose Date unk Acetaminophen Level < 10 ug/ml Serum Alcohol < 10 mg/dl Urine Color [place] Urine Clarity Clear Urine pH Color interference Urine Specific [place] Color interference Urine Protein Color interference Urine Glucose (UA) Color interference Urine Ketones Color interference Urine Blood Color interference Urine Nitrite Color interference Urine Bilirubin Color interference Urine Urobilinogen Color interference Urine Leukocyte Esterase Color interference Urine RBC <1 /HPF (0-2/HPF) Urine WBC 1 /HPF (0-5/HPF) Urine Squamous Epithelial Cells None /LPF (</=FEW) Urine Bacteria Negative /HPF (NONE-FEW) Urine Mucus None /HPF (NONE-FEW) Urine Opiates Screen Positive Urine Barbiturates Screen Negative Ur Tricyclic Antidepressants Screen Negative Urine Phencyclidine Screen Negative Urine Amphetamines Screen Negative Urine Benzodiazepines Screen Negative Urine Cocaine Screen Negative Urine Cannabinoids Screen Positive Chemistry Test 08/28/17 07:27 08/28/17 08:10 White Blood Count 9.2 k/uL (4.5-11.0) Red Blood Count 5.92 M/uL (4.00-5.60) Hemoglobin 19.5 g/dL (14.0-18.0) Hematocrit 56.3 % (42.0-52.0) Mean Corpuscular Volume 95.0 fL (80.0-96.0) Mean Corpuscular Hemoglobin 32.9 pg (26.0-33.0) Mean Corpuscular Hemoglobin Concent 34.6 g/dL (32.0-36.0) Red Cell Distribution Width 14.2 % (11.5-14.5) Platelet Count 157 K/uL (150-450) Mean Platelet Volume 9.9 fL (7.2-11.1) Neutrophils (%) (Auto) 81.3 % (39.4-72.5) Lymphocytes (%) (Auto) 10.7 % (17.6-49.6) Monocytes (%) (Auto) 5.5 % (4.1-12.4) Eosinophils (%) (Auto) 1.5 % (0.4-6.7) Basophils (%) (Auto) 1.0 % (0.3-1.4) Nucleated RBC Relative Count (auto) 0.1 /100WBC Neutrophils # (Auto) 7.5 K/uL (2.0-7.4) Lymphocytes # (Auto) 1.0 K/uL (1.3-3.6) Monocytes # (Auto) 0.5 K/uL (0.3-1.0) Eosinophils # (Auto) 0.1 K/uL (0.0-0.5) Basophils # (Auto) 0.1 K/uL (0.0-0.1) Nucleated RBC Absolute Count (auto) 0.01 K/uL Peripheral Blood Smear Yes Y/N Glomerular Filtration Rate Calc > 60.0 Calcium Level 10.3 mg/dl (8.4-10.2) Total Bilirubin 2.9 mg/dl (0.2-1.3) Aspartate Amino Transf (AST/SGOT) 90 U/L (0-35) Alanine Aminotransferase (ALT/SGPT) 86 U/L (0-56) Alkaline Phosphatase 87 U/L (0-126) Total Protein 8.2 gm/dl (6.3-8.2) Albumin 4.9 g/dl (3.5-5.0) Amylase Level 159 U/L (0-110) Lipase 1119 U/L (23-300) Salicylates Level < 10 mg/L Salicylate Last Dose Date unk Acetaminophen Level < 10 ug/ml Serum Alcohol < 10 mg/dl Urine Color [place] Urine Clarity Clear Urine pH Color interference Urine Specific [place] Color interference Urine Protein Color interference Urine Glucose (UA) Color interference Urine Ketones Color interference Urine Blood Color interference Urine Nitrite Color interference Urine Bilirubin Color interference Urine Urobilinogen Color interference Urine Leukocyte Esterase Color interference Urine RBC <1 /HPF (0-2/HPF) Urine WBC 1 /HPF (0-5/HPF) Urine Squamous Epithelial Cells None /LPF (</=FEW) Urine Bacteria Negative /HPF (NONE-FEW) Urine Mucus None /HPF (NONE-FEW) Urine Opiates Screen Positive Urine Barbiturates Screen Negative Ur Tricyclic Antidepressants Screen Negative Urine Phencyclidine Screen Negative Urine Amphetamines Screen Negative Urine Benzodiazepines Screen Negative Urine Cocaine Screen Negative Urine Cannabinoids Screen Positive Toxicology Test 08/28/17 07:27 08/28/17 08:10 Salicylates Level < 10 mg/L Salicylate Last Dose Date unk Acetaminophen Level < 10 ug/ml Serum Alcohol < 10 mg/dl Urine Opiates Screen Positive Urine Barbiturates Screen Negative Ur Tricyclic Antidepressants Screen Negative Urine Phencyclidine Screen Negative Urine Amphetamines Screen Negative Urine Benzodiazepines Screen Negative Urine Cocaine Screen Negative Urine Cannabinoids Screen Positive Urinalysis Test 08/28/17 08:10 Urine Color [place] Urine Clarity Clear Urine pH Color interference Urine Specific [place] Color interference Urine Protein Color interference Urine Glucose (UA) Color interference Urine Ketones Color interference Urine Blood Color interference Urine Nitrite Color interference Urine Bilirubin Color interference Urine Urobilinogen Color interference Urine Leukocyte Esterase Color interference Urine RBC <1 /HPF (0-2/HPF) Urine WBC 1 /HPF (0-5/HPF) Urine Squamous Epithelial Cells None /LPF (</=FEW) Urine Bacteria Negative /HPF (NONE-FEW) Urine Mucus None /HPF (NONE-FEW) EKG/Imaging Imaging CT abdomen with IV contrast CT pelvis with IV contrast History: Epigastric abdominal pain. History of pancreatitis. COMPARISON STUDIES: CTA chest 05/05/2016. TECHNIQUE: Axial CT images were obtained through the abdomen and pelvis during injection of nonionic iodinated intravenous contrast. Reformatted coronal and sagittal images were also obtained. Contrast: 75 ml of Isovue-370 IV contrast. One of the following dose optimization techniques was utilized in the performance of this exam: Automated exposure control; adjustment of the mA and/ or kV according to the patient's size; or use of an iterative reconstruction technique. Specific details can be referenced in the facility's radiology CT exam operational policy. FINDINGS: Chest bases: Negative Liver: Diffusely hypodense with smooth margins. Greater focal fatty infiltration is seen adjacent to the gallbladder fossa and along the ligamentum teres. Gallbladder and bile ducts: Gallbladder is present. Bile ducts are normal caliber. Spleen: size is normal. Pancreas: Pancreas head is enlarged, margins are indistinct, and peripancreatic fat is hazy. Pancreas body and tail appear normal. No pancreatic ductal dilatation or pseudocyst is observed. Adrenal glands: negative Kidneys: negative Pelvic structures: negative Bowel and mesenteries: The duodenum wall of the 2nd and 3rd segments adjacent to the pancreas head are thickened, and periduodenal fat haziness is observed. Mid and distal small bowel are normal. Normal appendix. Descending and sigmoid colon diverticulosis. Ascites: None Vessels: Mild mural calcification of the infrarenal abdominal aorta and common iliac arteries. Musculoskeletal: Negative Body wall: negative Lymph node assessment: negative IMPRESSION: 1. Acute pancreatitis of the pancreas head, and adjacent duodenitis. 2. Markedly fatty infiltration of the liver. Report Dictated By: Nhi Rosario MD at 08/28/2017 8:58 AM ED Course/Re-evaluation Clinical Indication for ER IV: Hydration, IV Access ED Course Labs showed elevated amylase and lipase with mild elevation of liver functions. Hemoconcentrated with normal white blood cell count and platelets. Potassium is low and was replaced with 20mEq potassium rider. The patient received a liter of normal saline here in the ER. CT scan shows the pancreatitis and adjacent duodenitis, but otherwise no pseudocysts or infection. Pain controlled with Morphine. Patient received Protonix 40mg IV as well. Discussed with Dr. Nayak who accepted the patient for admission. Decision to Disposition Date: Aug 28, 2017 Decision to Disposition Time: 09:10 Depart Departure Latest Vital Signs Vital Signs Date Time Temp Pulse Resp B/P (MAP) Pulse Ox O2 Delivery O2 Flow Rate FiO2 08/28/17 09:41 120/94 (103) 08/28/17 09:40 64 98 08/28/17 08:18 2.0 08/28/17 07:23 97.8 18 Room Air Impression: Primary Impression: Alcoholic pancreatitis Additional Impression: Hypokalemia Condition: Condition Unchanged Disposition: Admitted from ER Problem Qualifiers Primary Impression: Alcoholic pancreatitis Chronicity: acute Acute pancreatitis complication: no infection or necrosis Qualified Codes: K85.20 - Alcohol induced acute pancreatitis without necrosis or infection ANAMARIA ROTH MD Aug 28, 2017 07:22
[2017-08-28] MEDS ORDERED: NS(*) 0.9% 1000 ML BAG 1,000 ML IV ONE (07:40)
[2017-08-28] MEDS ORDERED: PANTOPRAZOLE SOD 40 MG IV VIAL IVP ONE (07:40)
[2017-08-28] MEDS ORDERED: MORPHINE 4 MG/ML SDV IVP ONE (07:40)
[2017-08-28] MEDS ORDERED: ONDANSETRON 4 MG/2 ML VIAL IVP ONE (07:40)
[2017-08-28 07:59] LABS: PLATELET COUNT, AUTOMATED 157 K/uL (150-450)
[2017-08-28] MEDS ORDERED: KCL (*) 20 MEQ/100 ML PREMIX 100 ML IV ONE (08:00)
[2017-08-28] MEDS ORDERED: IOPAMIDOL 76% 75 ML INFUS BTL 75 ML ONE (08:21)
--- NOTE | 2017-08-28 09:10 | RADIOLOGY IMAGING REPORT ---
FACILITY: [facility] PATIENT NAME: Rashaad Nichole : 1980 MR: [id number] V: [id number] EXAM DATE: [id number] ORDERING PHYSICIAN: ANAMARIA ROTH TECHNOLOGIST: Location: Patient: Rashaad Nichole : 1980 Visit/Account:[id number] Date of Sevice: 08/28/2017 CT abdomen with IV contrast CT pelvis with IV contrast History: Epigastric abdominal pain. History of pancreatitis. COMPARISON STUDIES: CTA chest 05/05/2016. TECHNIQUE: Axial CT images were obtained through the abdomen and pelvis during injection of nonioni c iodinated intravenous contrast. Reformatted coronal and sagittal images were also obtained. Contrast: 75 ml of Isovue-370 IV contrast. One of the following dose optimization techniques was utilized in the performance of this exam: Autom ated exposure control; adjustment of the mA and/or kV according to the patient's size; or use of an i terative reconstruction technique. Specific details can be referenced in the facility's radiology C T exam operational policy. FINDINGS: Chest bases: Negative Liver: Diffusely hypodense with smooth margins. Greater focal fatty infiltration is seen adjacent to the gallbladder fossa and along the ligamentum teres. Gallbladder and bile ducts: Gallbladder is present. Bile ducts are normal caliber. Spleen: size is normal. Pancreas: Pancreas head is enlarged, margins are indistinct, and peripancreatic fat is hazy. Pancrea s body and tail appear normal. No pancreatic ductal dilatation or pseudocyst is observed. Adrenal glands: negative Kidneys: negative Pelvic structures: negative Bowel and mesenteries: The duodenum wall of the 2nd and 3rd segments adjacent to the pancreas head a re thickened, and periduodenal fat haziness is observed. Mid and distal small bowel are normal. Mica l appendix. Descending and sigmoid colon diverticulosis. Ascites: None Vessels: Mild mural calcification of the infrarenal abdominal aorta and common iliac arteries. Musculoskeletal: Negative Body wall: negative Lymph node assessment: negative IMPRESSION: 1. Acute pancreatitis of the pancreas head, and adjacent duodenitis. 2. Markedly fatty infiltration of the liver. Report Dictated By: Nhi Rosario MD at 08/28/2017 8:58 AM Report E-Signed By: Nhi Rosario MD at 08/28/2017 9:05 AM WSN:[id number]
[2017-08-28 10:01] VITALS: BP 128/92
[2017-08-28] MEDS ORDERED: MAGN250T34 PO (10:18)
[2017-08-28] MEDS ORDERED: IBUP200C71 PO (10:18)
[2017-08-28] MEDS ORDERED: NS(*) 0.9% 250 ML BAG 250 ML in NS(*) 0.9% 250 ML BAG 250 ML IV SCH (10:25)
[2017-08-28] MEDS ORDERED: NALOXONE HCL 0.4 MG/ML VIAL IVP PRN (10:25)
[2017-08-28] MEDS ORDERED: NS(*) 0.9% 250 ML BAG 250 ML IVPB ONE (10:30)
--- NOTE | 2017-08-28 10:54 | History & Physical ---
History of Present Illness Chief Complaint Epigastric Pain, Nausea and Vomiting History of Present Illness He presented with epigastric pain, nausea and vomiting to the emergency department. He has a history of alcoholic pancreatitis last summer. He states that he started feeling abdominal pain with nausea and vomiting approximately one week ago. He states that he has not been able to eat or drink. He did have an alcoholic binge on and Monday. Prior to that, he reports he was doing better with his alcoholism. He reports he was treated for Gastritis last week and he started omeprazole. He feels that started to help him feel better. History Problems: (1) Alcoholic pancreatitis Status: Acute (2) Gastritis Status: Acute (3) Depression Status: Chronic (4) Cluster B personality disorder Status: Chronic (5) Alcohol use disorder, severe, dependence Status: Chronic Home Meds Active Scripts Omeprazole (OMEPRAZOLE) 40 Mg Capsule.dr, 40 MG PO QDAY, #15 CAP Prov:BANDAR VILLASENOR HEEL PAINTER 07/26/17 Reported Medications Ibuprofen (IBUPROFEN) 200 Mg Capsule, 1 CAP PO Q2H Y for PAIN, CAPSULE 08/28/17 Magnesium Oxide (MAGNESIUM) 250 Mg Tablet, 250 MG PO QDAY 08/28/17 Thiamine Mononitrate (VITAMIN B-1) 100 Mg Tablet, 100 MG PO Purchase over the counter. Take for 1 month 07/06/17 Folic Acid (FOLIC ACID) 1 Mg Tablet, 1 MG PO QDAY, TAB Purchase over the counter. Take for 1 month 07/06/17 Multivits,Ca,Minerals/Iron/FA (Thera M Plus Tablet) 1 Each Tablet, 1 TAB PO DAILY 01/15/17 Citalopram Hydrobromide (CITALOPRAM HBR) 40 Mg Tablet, 40 MG PO QDAY, #30 TAB 1 Refill 01/15/17 Allergies: Coded Allergies: acetaminophen (Verified Adverse Reaction, Intermediate, ITCHING, 07/26/17) hydrocodone (Verified Adverse Reaction, Intermediate, ITCHING, 07/26/17) Patient History: Degenerative joint disease MOTHER FH: aortic aneurysm FATHER FH: diabetes mellitus FATHER Hx Smoking: Yes Smoking Status: Current: Every Day Smoker Exposure to Second Hand Smoke?: No Caffeine Intake: Coffee, Soda Caffeine/Cups Per Day: 1-200 MG CAFFEINE DAILY Hx Alcohol Use: Yes Hx Substance Use Disorder: No Social Drug Use: Currently Social Drugs: Marijuana Amount Of Social Drug/s Used: A TEENAGER EXPERIMENTALLY Review of Systems All Systems Reviewed/Normal: Yes, Except as Noted Gastrointestinal: Nausea, Vomiting, Other (epigastric pain) Exam Vital Signs Vital Signs Date Time Temp Pulse Resp B/P (MAP) Pulse Ox O2 Delivery O2 Flow Rate FiO2 08/28/17 10:24 93 Nasal Cannula 1.0 08/28/17 10:01 97.8 71 16 128/92 (104) General Appearance: Alert, Awake, No Acute Distress, Afebrile Neuro: No Gross deficits Cardiovascular: Regular Rate and Rhythm Respiratory: No Respiratory Distress, Clear to Auscultation GI: Abd Soft and Non-Tender Extremities: No Edema Psych: Alert & Oriented X3, Appropriate Mood & Affect Medical Decision Making Data Points Result Diagram: 08/28/1772608/28/17726 Item Value Date Time Amylase Level 159 U/L H 08/28/17726 Lipase 1119 U/L H 08/28/17726 Aspartate Amino Transf (AST/SGOT) 90 U/L H 08/28/17726 Alanine Aminotransferase (ALT/SGPT) 86 U/L H 08/28/17726 Alkaline Phosphatase 87 U/L 08/28/17726 EKG / Imaging Imaging [place] [facility] [place] NAME: Rashaad Nichole : 1980 MR: [id number] V: [id number] EXAM DATE: [id number] ORDERING PHYSICIAN: ANAMARIA ROTH TECHNOLOGIST: Location: [facility] [place] Patient: Rashaad Nichole : 1980 Visit/Account:[id number] Date of Sevice: 08/28/2017 CT abdomen with IV contrast CT pelvis with IV contrast History: Epigastric abdominal pain. History of pancreatitis. COMPARISON STUDIES: CTA chest 05/05/2016. TECHNIQUE: Axial CT images were obtained through the abdomen and pelvis during injection of nonionic iodinated intravenous contrast. Reformatted coronal and sagittal images were also obtained. Contrast: 75 ml of Isovue-370 IV contrast. One of the following dose optimization techniques was utilized in the performance of this exam: Automated exposure control; adjustment of the mA and/ or kV according to the patient's size; or use of an iterative reconstruction technique. Specific details can be referenced in the facility's radiology CT exam operational policy. FINDINGS: Chest bases: Negative Liver: Diffusely hypodense with smooth margins. Greater focal fatty infiltration is seen adjacent to the gallbladder fossa and along the ligamentum teres. Gallbladder and bile ducts: Gallbladder is present. Bile ducts are normal caliber. Spleen: size is normal. Pancreas: Pancreas head is enlarged, margins are indistinct, and peripancreatic fat is hazy. Pancreas body and tail appear normal. No pancreatic ductal dilatation or pseudocyst is observed. Adrenal glands: negative Kidneys: negative Pelvic structures: negative Bowel and mesenteries: The duodenum wall of the 2nd and 3rd segments adjacent to the pancreas head are thickened, and periduodenal fat haziness is observed. Mid and distal small bowel are normal. Normal appendix. Descending and sigmoid colon diverticulosis. Ascites: None Vessels: Mild mural calcification of the infrarenal abdominal aorta and common iliac arteries. Musculoskeletal: Negative Body wall: negative Lymph node assessment: negative IMPRESSION: 1. Acute pancreatitis of the pancreas head, and adjacent duodenitis. 2. Markedly fatty infiltration of the liver. Report Dictated By: Nhi Rosario MD at 08/28/2017 8:58 AM Report E-Signed By: Nhi Rosario MD at 08/28/2017 9:05 AM WSN:[id number] Assessment and Plan Problems: (1) Alcoholic pancreatitis Status: Acute Assessment & Plan: He presented with epigastric pain, nausea and vomiting. CT scan of his abdomen showed acute pancreatitis with a lipase of 1119. He will be placed on NPO diet with IV hydration, pain medication and nausea medication. We will recheck his lipase in the morning. (2) Hypokalemia Status: Acute Assessment & Plan: Potassium 2.9. He will be given IV potassium. We will recheck his level in the morning. (3) Alcohol use disorder, severe, dependence Status: Chronic Assessment & Plan: He plans to go to [facility] voluntarily upon discharge from medical floor. He will be given a banana bag and be placed on CIWA during admission. Venous Thromboembolism Antithrombotics Is Pt On Any Antithrombotics?: No Exam Sepsis Risk: No Definite Risk Problem Qualifiers (1) Alcoholic pancreatitis: Chronicity: acute Acute pancreatitis complication: no infection or necrosis Qualified Codes: K85.20 - Alcohol induced acute pancreatitis without necrosis or infection CARLINE CHAVEZ HEEL PAINTER Aug 28, 2017 10:54
[2017-08-28] MEDS ORDERED: MAGNESIUM SUL IV ONE (11:00)
[2017-08-28] MEDS ORDERED: MULTIVITAMINS IV ONE (11:00)
[2017-08-28] MEDS ORDERED: [UNRECOGNIZED DRUG - OTHER] IV ONE (11:00)
[2017-08-28] MEDS: MORPHINE 1 MG/ML 30 ML PCA IV PRN ×2 (11:12→22:22)
[2017-08-28 11:48] VITALS: BP 136/101
--- NOTE | 2017-08-28 14:40 | Medical Nutrition Therapy ---
Nutrition Anthropometrics Height (Inches): 67.00 Height (Calculated Centimeters: 170.033766 Weight (Pounds): 171 Weight (Calculated Kilograms): 77.621 Bebo Nutrition Score: Adequate Bebo Nutrition Risk Score: 17 Dietary Referral Nutrition Risk Factors: Unplanned Loss >10lbs Nutrition Risk Comment: food poisioning recent Physical Findings Physical Appearance: Overweight BMI 25-29 Skin Appearance Skin Appearance: Edema Edema Location Modifier: Edema Location: Type of Edema: Degree of Edema: Gastrointestinal Symptoms GI Symtoms: Tube Present: Bowel Sounds: Recent Bowel Pattern: Stool Characteristics: Nutrition/Food History hx alcohol abuse Alcohol Use: Currently Amount of Alcohol Used: 1pt vodka/day Nutritional Diagnosis Nutritional Risk Acuity 2: Unintended Wt Loss >5%/mo (8% wt loss/1 month), Pancreatitis Nutritional Risk Acuity 3: Alcohol abuse Nutritional Acuity: 2-Moderate Nutrition Diagnosis: Increased Nutrient Needs, Excessive Alcohol Intake Nutrition Etiology: Physiological Causes, Alcohol Addiction Nutrition Problem/Etiology/Sym: increased protein needs r/t dx pancreatitis AEB lipase 1119. Excessive alcohol intake r/t alcohol addition AEB reprted 1pt vodka/day intake. Energy Requirement: 2362 (M-StJ X 1.1 SF) Protein Requirement: 85 (1.1gm/kg) Fluid Requirement: 2310 Diet Type: NPO (Nothing by Mouth) Nutrition Intervention: Incr diet as tolerated Drug/Nutrition Recommendations: Patient Taking K+ Nutrition Monitoring & Eval Nutrition Goals: Eat 75-100% Meal RD Patient Assessment Time: [address] Assessment Type: RD Assessment Patient Nutrition Acuity: 2-Moderate Follow Up Date: August 31, 2017 Nutritional Comment: 08/28 Pt admitted for alcoholic pancreatitis. Lipase 1119. Pt reportign drinking 1 pt vodka/day with nausea and abd pain following ETHOL binge. Pt reporting 10# wt loss. Wt was stated as 185# last admit 07/03/17 and 180# on standing scale 12/2016. Curretn BMI is within overwt range. Slow wt loss is acceptable but concern is wt loss is r/t drinking and not eating adequately. alb 2.9, K+ 2.9, pt is recieving K+ supplmetn. Elevated AST 90, ALT 85. Pt is curretnly NPO. Will cont to monitor. ADE REEVES Aug 28, 2017 14:40
[2017-08-28 15:20] VITALS: BP 131/100
[2017-08-28] MEDS ORDERED: diphenhydrAMINE 50 MG/ML VIAL IVP PRN (16:05)
[2017-08-28] MEDS: LORazepam 2 MG/ML VIAL IVP PRN (18:08)
[2017-08-28 18:48] VITALS: BP 119/85
[2017-08-28] MEDS: KCL/NS* 20 MEQ/1000 ML PREMIX 1,000 ML IV SCH (21:16)
[2017-08-28 22:28] VITALS: BP 117/88
[2017-08-29 03:33] VITALS: BP 120/86
[2017-08-29] MEDS: KCL/NS* 20 MEQ/1000 ML PREMIX 1,000 ML IV SCH (05:16)
[2017-08-29 05:48] LABS: PLATELET COUNT, AUTOMATED 109 K/uL (150-450)
[2017-08-29 08:12] VITALS: BP 117/89
[2017-08-29] MEDS: PANTOPRAZOLE SOD 40 MG IV VIAL IVP SCH (08:32)
[2017-08-29] MEDS: MORPHINE 1 MG/ML 30 ML PCA IV PRN ×2 (09:36→18:18)
--- NOTE | 2017-08-29 10:20 | Hospitalist Progress Note ---
Subjective Progress Notes Subjective He has complaints of epigastric pain this morning. Patient Complains of: Cardiovascular: No: Chest Pain Respiratory: No: Shortness of Breath Genitourinary: Other (Epigastric pain) Physical Exam Vital Signs Date Time Temp Pulse Resp B/P (MAP) Pulse Ox O2 Delivery O2 Flow Rate FiO2 08/29/17 08:15 Nasal Cannula 2.0 08/29/17 08:12 97.9 82 16 117/89 (98) 94 General Appearance: Alert, Awake, No Acute Distress, Afebrile Neuro: No Gross deficits Cardiovascular: Regular Rate and Rhythm Respiratory: No Respiratory Distress, Clear to Auscultation GI: Soft and Non-Tender, Other (epigastric tender upon palpation) Psych: Alert & Oriented X3, Appropriate Mood & Affect Result Diagram: 08/29/1751508/29/17515 Assessment and Plan Problems: (1) Alcoholic pancreatitis Status: Acute Assessment & Plan: He presented with epigastric pain, nausea and vomiting. CT scan of his abdomen showed acute pancreatitis with a lipase of 1119. Lipase this morning is 5734. He will continue NPO diet with IV hydration, pain medication and nausea medication. We will recheck his lipase in the morning. (2) Hypokalemia Status: Acute Assessment & Plan: Potassium 2.9. He was given IV potassium. Potassium this morning is 3.9. (3) Alcohol use disorder, severe, dependence Status: Chronic Assessment & Plan: He plans to go to [facility] voluntarily upon discharge from medical floor. He was given a banana bag and is on CIWA assessments during admission. (4) Depression Status: Chronic Assessment & Plan: He is on chronic treatment with citalopram. This has been held at this time. Exam Sepsis Risk: No Definite Risk Problem Qualifiers (1) Alcoholic pancreatitis: Chronicity: acute Acute pancreatitis complication: no infection or necrosis Qualified Codes: K85.20 - Alcohol induced acute pancreatitis without necrosis or infection CARLINE CHAVEZ August 29, 2017 10:19
[2017-08-29] MEDS: D5 1/2 NS(*) 1000 ML BAG 1,000 ML IV PRN ×2 (10:32→23:26)
[2017-08-29 10:33] VITALS: BP 129/95
[2017-08-29] MEDS: PROMETHAZINE 25 MG/ML 1 ML AMP IVP PRN (12:45)
[2017-08-29 15:23] VITALS: BP 127/94
[2017-08-29 19:10] VITALS: BP 125/99
[2017-08-29 22:44] VITALS: BP 139/91
[2017-08-30] MEDS: MORPHINE 1 MG/ML 30 ML PCA IV PRN (01:15)
[2017-08-30 02:18] VITALS: BP 130/96
[2017-08-30] MEDS: PROMETHAZINE 25 MG/ML 1 ML AMP IVP PRN ×2 (05:03→23:37)
[2017-08-30 06:03] LABS: PLATELET COUNT, AUTOMATED 101 K/uL (150-450)
[2017-08-30] MEDS: PANTOPRAZOLE SOD 40 MG IV VIAL IVP SCH (09:35)
--- NOTE | 2017-08-30 09:41 | Hospitalist Progress Note ---
Subjective Progress Notes Subjective He has no complaints this morning. Patient Complains of: Cardiovascular: No: Chest Pain Respiratory: No: Shortness of Breath Physical Exam Vital Signs Date Time Temp Pulse Resp B/P (MAP) Pulse Ox O2 Delivery O2 Flow Rate FiO2 08/30/17 06:21 97 08/30/17 02:18 97.8 89 16 130/96 (107) Nasal Cannula 2.0 General Appearance: Alert, Awake, No Acute Distress, Afebrile Neuro: No Gross deficits Cardiovascular: Regular Rate and Rhythm Respiratory: No Respiratory Distress, Clear to Auscultation GI: Soft and Non-Tender Psych: Alert & Oriented X3, Appropriate Mood & Affect Result Diagram: 08/30/1752408/30/17524 Assessment and Plan Problems: (1) Alcoholic pancreatitis Status: Acute Assessment & Plan: He presented with epigastric pain, nausea and vomiting. CT scan of his abdomen showed acute pancreatitis with a lipase of 1119. Lipase this morning is 7022. He will continue NPO diet with IV hydration, pain medication and nausea medication. We will recheck his lipase in the morning. We will get a gallbladder ultrasound today. (2) Hypokalemia Status: Acute Assessment & Plan: Potassium this morning is 3.4. He will get potassium IV today. (3) Alcohol use disorder, severe, dependence Status: Chronic Assessment & Plan: He plans to go to [facility] voluntarily upon discharge from medical floor. He was given a banana bag upon admission and is on CIWA assessments. (4) Depression Status: Chronic Assessment & Plan: He is on chronic treatment with citalopram. This has been held at this time. Exam Sepsis Risk: No Definite Risk Problem Qualifiers (1) Alcoholic pancreatitis: Chronicity: acute Acute pancreatitis complication: no infection or necrosis Qualified Codes: K85.20 - Alcohol induced acute pancreatitis without necrosis or infection CARLINE CHAVEZ August 30, 2017 09:41
[2017-08-30 10:37] VITALS: BP 131/93
--- NOTE | 2017-08-30 11:41 | RADIOLOGY IMAGING REPORT ---
FACILITY: [facility] - [place] PATIENT NAME: Rashaad Nichole : 1980 MR: [id number] V: [id number] EXAM DATE: ORDERING PHYSICIAN: CARLINE CHAVEZ TECHNOLOGIST: Location: [facility] Patient: Rashaad Nichole : 1980 Visit/Account:[id number] Date of Sevice: 08/30/2017 GALLBLADDER HISTORY: abdominal pain, pancreatitis COMPARISON: CT abdomen and pelvis August 28, 2017 FINDINGS: Gallbladder: Nonlayering echogenic debris seen within the gallbladder may represent cholesterol cryst als or small amount of sludge. Liver: There is increased echogenicity throughout the liver which can be seen with fatty infiltration or other infiltrative process. Common duct: Normal, 4.3 mm diameter. Pancreas: Pancreas appears diffusely heterogeneous consistent with the history of pancreatitis Right kidney: No evidence of hydronephrosis. The right kidney measures 10.8 cm in length Upper abdominal aorta and IVC: Patent. Ascites: None visualized. IMPRESSION: Diffusely heterogeneous pancreas consistent with the clinical history of pancreatitis Increased echogenicity throughout the liver which can be seen with fatty infiltration or other infilt rative process Non-layering echogenic material is noted throughout the gallbladder which may represent cholesterol c rystals or small amount sludge Report Dictated By: Kim Wei MD at 08/30/2017 11:33 AM Report E-Signed By: Kim Wei MD at 08/30/2017 11:37 AM [id number]
[2017-08-30] MEDS: KCL/D1/2NS 20 MEQ 1000 ML 1,000 ML IV PRN (13:40)
[2017-08-30 20:25] VITALS: BP 123/84
[2017-08-30 23:44] VITALS: BP 118/97
[2017-08-31 02:29] VITALS: BP 128/85
[2017-08-31] MEDS: KCL/D1/2NS 20 MEQ 1000 ML 1,000 ML IV PRN ×2 (02:33→17:11)
[2017-08-31 06:04] LABS: PLATELET COUNT, AUTOMATED 99 K/uL (150-450)
[2017-08-31 07:13] VITALS: BP 128/88
--- NOTE | 2017-08-31 08:31 | Hospitalist Progress Note ---
Subjective Progress Notes Subjective He has no complaints this morning. Patient Complains of: Cardiovascular: No: Chest Pain Respiratory: No: Shortness of Breath Physical Exam Vital Signs Date Time Temp Pulse Resp B/P (MAP) Pulse Ox O2 Delivery O2 Flow Rate FiO2 08/31/17 07:13 98.1 69 16 128/88 (101) Nasal Cannula 0.5 08/31/17 02:29 98 General Appearance: Alert, Awake, No Acute Distress, Afebrile Neuro: No Gross deficits Cardiovascular: Regular Rate and Rhythm Respiratory: No Respiratory Distress, Clear to Auscultation GI: Soft and Non-Tender Psych: Alert & Oriented X3, Appropriate Mood & Affect Result Diagram: 08/31/17 0536 08/31/1736 Assessment and Plan Problems: (1) Alcoholic pancreatitis Status: Acute Assessment & Plan: He presented with epigastric pain, nausea and vomiting. CT scan of his abdomen showed acute pancreatitis with a lipase of 1119. Lipase has started to now trend down, this morning Lipase is 2479. He will continue NPO diet with IV hydration, pain medication and nausea medication. We will recheck his lipase in the morning. Gallbladder ultrasound shows some sludge. (2) Hypokalemia Status: Acute Assessment & Plan: Potassium this morning is 3.3. He will get potassium IV today. (3) Alcohol use disorder, severe, dependence Status: Chronic Assessment & Plan: He plans to go to [facility] voluntarily upon discharge from medical floor. (4) Depression Status: Chronic Assessment & Plan: He is on chronic treatment with citalopram. This has been held at this time. Exam Sepsis Risk: No Definite Risk Problem Qualifiers (1) Alcoholic pancreatitis: Chronicity: acute Acute pancreatitis complication: no infection or necrosis Qualified Codes: K85.20 - Alcohol induced acute pancreatitis without necrosis or infection CARLINE CHAVEZ SYSTEM DISPATCHER August 31, 2017 08:31
[2017-08-31] MEDS ORDERED: KCL (*) 20 MEQ/100 ML PREMIX 100 ML IV ONE (08:45)
[2017-08-31] MEDS: PANTOPRAZOLE SOD 40 MG IV VIAL IVP SCH (08:59)
[2017-08-31] MEDS ORDERED: INFLUENZA VIRUS VAC 0.5 ML SYR IM ONLY ONE (09:00)
[2017-08-31] MEDS: MORPHINE 4 MG/ML SDV IVP PRN ×4 (09:00→23:32)
[2017-08-31 11:04] VITALS: BP 136/94
[2017-08-31] MEDS: LORazepam 2 MG/ML VIAL IVP PRN (13:07)
--- NOTE | 2017-08-31 16:27 | Medical Nutrition Therapy ---
Nutrition Anthropometrics Height (Inches): 67.00 Height (Calculated Centimeters: 170.600849 Weight (Pounds): 171 Weight (Calculated Kilograms): 77.621 Bebo Nutrition Score: Adequate Bebo Nutrition Risk Score: 19 Dietary Referral Nutrition Risk Factors: Unplanned Loss >10lbs Nutrition Risk Comment: food poisioning recent Physical Findings Physical Appearance: Overweight BMI 25-29 Skin Appearance Skin Appearance: Edema Edema Location Modifier: Edema Location: Type of Edema: Degree of Edema: Gastrointestinal Symptoms GI Symtoms: Nausea, Bloating, Weight Changes Tube Present: Bowel Sounds: Recent Bowel Pattern: Stool Characteristics: Nutritional Diagnosis Nutritional Risk Acuity 1: NPO/CL > 3 days Nutritional Risk Acuity 2: Unintended Wt Loss >5%/mo (8% wt loss/1 month), Pancreatitis Nutritional Risk Acuity 3: Alcohol abuse Past Medical History: Dependence hypokalemia, depression with anxiety, alcohol pancreatitis Nutritional Acuity: 1-High Nutrition Diagnosis: Increased Nutrient Needs, Excessive Alcohol Intake Nutrition Etiology: Physiological Causes, Alcohol Addiction Nutrition Problem/Etiology/Sym: increased protein needs r/t dx pancreatitis AEB lipase 1119. Excessive alcohol intake r/t alcohol addition AEB reprted 1pt vodka/day intake. 08/31: increased protein needs r/t dx alcohol pacreatitis AEB lipase 2479. MT Energy Requirement: 2362 ([place] Jeor ) Protein Requirement: 1.1 (1.1 g/kg 1.1g protein X 77.621 kg) Fluid Requirement: 2362 (1 ml/kcal) Diet Type: NPO (Nothing by Mouth) Nutrition Intervention: Incr diet as tolerated Drug/Nutrition Recommendations: Patient Taking K+ Nutritional Support Recommended Enteral / Parental: Tube Feeding Recommended Tube Feeding Formu: Jevity 1cal/ml-Standard Recommended Tube Feeding Formu: intial 15ml/hr increase Q 4hr to final rate 90ml/hr Tube Feeding Supplement Streng: Full Recommended Feeding Route: FT Placed Nasogastric Recommended Goal Rate: 90 ml/hr Recommended Duration: 24 Recommended Calories: 2290 (90ml/hr X 24 hrX 1.06 Jevity 2289.6) Recommended Protein: 96 (90 ml/hr X 24hr X 44.3g/L protein Jevity = 61738X = 95.688 ml) Nutrition Monitoring & Eval RD Patient Assessment Time: [address] Assessment Type: RD Re-Assessment Patient Nutrition Acuity: 1-High Follow Up Date: August 31, 2017 Nutritional Comment: 08/28 Pt admitted for alcoholic pancreatitis. Lipase 1119. Pt reportign drinking 1 pt vodka/day with nausea and abd pain following ETHOL binge. Pt reporting 10# wt loss. Wt was stated as 185# last admit 07/03/17 and 180# on standing scale 12/2016. Curretn BMI is within overwt range. Slow wt loss is acceptable but concern is wt loss is r/t drinking and not eating adequately. alb 2.9, K+ 2.9, pt is recieving K+ supplmetn. Elevated AST 90, ALT 85. Pt is curretnly NPO. Will cont to monitor. 08/31: Pt continues on NPO diet. This is day 4 of NPO diet. Pt is recieving IV for fluids and medications. Pt lipase remain elevated 2479. AST and ALT levels have reduced since 08/28. AST 70, ALT 64, however still remaining elevated. Alb 3.2, low BUN 7.0 Whole BG 83. Na 136, K+ 3.3, Pt is taking K+ supplement. Due to pt on his fourth day NPO, recommend nutrition support. Jevity 1.06 kcal/cc with 2290 kcal and 95g protein that will help pt meet nutritional needs. Intial rate at 15ml/hr increase Q 4hr to final rate 90ml/hr. Continue to monitor pt. CECILIA ARCEO August 31, 2017 15:33
[2017-08-31 18:00] VITALS: BP 136/90
[2017-08-31 19:25] VITALS: BP 128/89
[2017-09-01] VITALS (7 sets, daily range): BP systolic 126–145; BP diastolic 83–103
[2017-09-01] MEDS: MORPHINE 4 MG/ML SDV IVP PRN ×6 (03:34→23:58)
[2017-09-01 05:48] LABS: PLATELET COUNT, AUTOMATED 123 K/uL (150-450)
[2017-09-01] MEDS: KCL/D1/2NS 20 MEQ 1000 ML 1,000 ML IV PRN (06:38)
[2017-09-01] MEDS: PANTOPRAZOLE SOD 40 MG IV VIAL IVP SCH ×2 (09:00→21:03)
[2017-09-01] MEDS ORDERED: IOPAMIDOL 76% 75 ML INFUS BTL 75 ML ONE (09:10)
--- NOTE | 2017-09-01 10:19 | RADIOLOGY IMAGING REPORT ---
FACILITY: [facility] PATIENT NAME: Rashaad Nichole : 1980 MR: [id number] V: [id number] EXAM DATE: ORDERING PHYSICIAN: FLY HURD TECHNOLOGIST: [place] [facility] [place]ashaad Nich[place] : 1980 Visit/Account:[id number] Date of Sevice: 09/01/2017 CT ABDOMEN WITH AND WITHOUT CONTRAST CLINICAL INFORMATION: Pancreatitis TECHNIQUE: Axial CT images were obtained through the abdomen before and after injection of nonionic iodinated intravenous contrast. Reformatted coronal and sagittal images were also obtained. Pre cont rast and delayed images were obtained. Dose Lowering Technique One of the following dose optimization techniques was utilized in the performance of this exam: Autom ated exposure control; adjustment of the mA and/or kV according to the patient's size; or use of an i terative reconstruction technique. Specific details can be referenced in the facility's radiology C T exam operational policy. CONTRAST: 75ml of IV Isovue-370 contrast. COMPARISON: August 28, 2017. FINDINGS: Lower lung connors: Limited views lower lung field are unremarkable. Liver: There is severe diffuse fatty infiltration throughout the liver. Biliary: Gallbladder is moderately distended Pancreas: Pancreatic head remains enlarged with mild haziness of the adjacent peripancreatic fat alth ough inflammatory changes partially improved. The pancreatic duct is not dilated. There is no evide nce of pseudocyst formation or pancreatic necrosis. Spleen: Normal appearance. Adrenal glands: Unremarkable. Kidneys / retroperitoneum: No evidence of nephrolithiasis or hydronephrosis Bowel / peritoneum / mesenteries: The wall of the second and third portions of the duodenum appear th ickened adjacent to the pancreatic head and appear similar to the prior study. Diverticulosis in the visualized left-sided colon again seen Vessels: Mild vascular calcifications in the infrarenal abdominal aorta and common iliac arteries ath erosclerotic calcification seen throughout a nonaneurysmal abdominal aorta and branches. Musculoskeletal / Body wall: No acute or aggressive osseous abnormality. Lymph node assessment: No pathologic adenopathy identified. There is mild thickening of the lateral conal fascia on the left which has occurred since the prior s tudy suggesting mild adjacent inflammatory change IMPRESSION: 1. The pancreatic head remains enlarged with mild haziness of the adjacent peripancreatic fat althou gh the surrounding inflammatory changes or partially improved. There is no evidence of pseudocyst fo rmation or pancreatic necrosis The wall of the second and third portions of the duodenum appear thickened adjacent to the pancreatic head although similar to the prior study Diverticulosis left-sided colon although no CT evidence of acute diverticulitis There is mild thickening of the lateral conal fascia on the left which has occurred since the prior s tudy suggesting mild adjacent inflammatory change Gallbladder is moderately distended correlation with meal history needed Severe diffuse fatty infiltration throughout the liver 2. 3. Report Dictated By: Kim Wei MD at 09/01/2017 10:00 AM Report E-Signed By: Kim Wei MD at 09/01/2017 10:14 AM WSN:[email or web address]
--- NOTE | 2017-09-01 11:10 | Hospitalist Progress Note ---
Subjective Progress Notes Subjective The patient states he continues to have abdominal pain due to "hunger pains". States he would like to go back on the [employer] pump. Also states he has not eaten for weeks and has lost 40 pounds. Physical Exam Vital Signs Date Time Temp Pulse Resp B/P (MAP) Pulse Ox O2 Delivery O2 Flow Rate FiO2 09/01/17 08:47 92 Room Air 09/01/17 07:39 98.2 61 16 138/103 (115) 08/31/17 11:04 0.5 Intake and Output 09/02/17 07:00 # Voids 1 General Appearance: Alert, Awake, Other (Quite emotional, crying.) Neuro: No Gross deficits Eyes: PERRLA Cardiovascular: Regular Rate and Rhythm Respiratory: Clear to Auscultation GI: Soft and Non-Tender Extremities: Warm, Perfused, Other (No edema.) Integumentary: Skin Intact without Lesion / Mass Psych: Other (Very emotional, crying.) Result Diagram: 09/01/17 0537 09/01/17 0537 Assessment and Plan Problems: (1) Alcoholic pancreatitis Status: Acute Assessment & Plan: He presented with epigastric pain, nausea and vomiting. CT scan of his abdomen showed acute pancreatitis with an initial lipase of 1119. Lipase went up and then started to now trend down. Lipase is a bit increased today from 2479 on 08/31 to [address] has been ordered for further evaluation. He will continue NPO diet with IV hydration, pain medication and nausea medication. We will recheck his lipase in the morning. Gallbladder ultrasound showed some sludge but he has no evidence of duct dilation on either his CT or his US. The patient was recently treated for gastritis as well (about one month ago). He states has lost 40 pounds over the past several weeks. Review of the EMR shows his weight to be stable at 77kg on his visits to ER and [facility] over the past year. (2) Hypokalemia Status: Acute Assessment & Plan: Potassium this morning is 3.5. He did not tolerate a K- rider well yesterday. Will increase the amount of potassium in his IV fluids. (3) Alcohol use disorder, severe, dependence Status: Chronic Assessment & Plan: He plans to go to [facility] voluntarily upon discharge from medical floor. Will have [facility] evaluate. (4) Depression Status: Chronic Assessment & Plan: He is on chronic treatment with citalopram. This has been held at this time. He is quite emotional currently. Time Spent on Plan of Care: < 30 min Exam Sepsis Risk: No Definite Risk Problem Qualifiers (1) Alcoholic pancreatitis: Chronicity: acute Acute pancreatitis complication: no infection or necrosis Qualified Codes: K85.20 - Alcohol induced acute pancreatitis without necrosis or infection FLY HURD MD September 01, 2017 11:10
[2017-09-01] MEDS: KCL 2 MEQ/ML 20 MEQ/10 ML VIAL 40 MEQ in NS(*) 0.9% 1000 ML BAG 1,000 ML IV SCH ×2 (11:22→23:59)
--- NOTE | 2017-09-01 13:03 | Medical Nutrition Therapy ---
Nutrition Anthropometrics Height (Inches): 67.00 Height (Calculated Centimeters: 170.189277 Weight (Pounds): 171 Weight (Calculated Kilograms): 77.621 Bebo Nutrition Score: Adequate Bebo Nutrition Risk Score: 20 Dietary Referral Nutrition Risk Factors: Unplanned Loss >10lbs Nutrition Risk Comment: food poisioning recent Physical Findings Physical Appearance: Overweight BMI 25-29 Skin Appearance Skin Appearance: Edema Edema Location Modifier: Edema Location: Type of Edema: Degree of Edema: Gastrointestinal Symptoms GI Symtoms: Bloating, Change in Bowel Pattern Tube Present: Bowel Sounds: Recent Bowel Pattern: Stool Characteristics: Nutritional Diagnosis Nutritional Risk Acuity 1: NPO/CL > 3 days Nutritional Risk Acuity 2: Unintended Wt Loss >5%/mo (8% wt loss/1 month), Pancreatitis Nutritional Risk Acuity 3: Alcohol abuse Past Medical History: Dependence hypokalemia, depression with anxiety, alcohol pancreatitis Nutritional Acuity: 1-High Nutrition Diagnosis: Increased Nutrient Needs, Excessive Alcohol Intake Nutrition Etiology: Physiological Causes, Alcohol Addiction Nutrition Problem/Etiology/Sym: increased protein needs r/t dx pancreatitis AEB lipase 1119. Excessive alcohol intake r/t alcohol addition AEB reprted 1pt vodka/day intake. 08/31: increased protein needs r/t dx alcohol pacreatitis AEB lipase 2479. MT Energy Requirement: 2362 ([place] Jeor ) Protein Requirement: 1.1 (1.1 g/kg 1.1g protein X 77.621 kg) Fluid Requirement: 2362 (1 ml/kcal) Diet Type: NPO (Nothing by Mouth) Nutrition Intervention: Incr diet as tolerated Drug/Nutrition Recommendations: Patient Taking K+ Nutritional Support Recommended Enteral / Parental: Tube Feeding Recommended Tube Feeding Formu: Jevity 1cal/ml-Standard Recommended Tube Feeding Formu: intial 15ml/hr increase Q 4hr to final rate 90ml/hr Tube Feeding Supplement Streng: Full Recommended Feeding Route: FT Placed Nasogastric Recommended Goal Rate: 90 ml/hr Recommended Duration: 24 Recommended Calories: 2290 (90ml/hr X 24 hrX 1.06 Jevity 2289.6) Recommended Protein: 96 (90 ml/hr X 24hr X 44.3g/L protein Jevity = 96159T = 95.688 ml) Nutrition Monitoring & Eval RD Patient Assessment Time: [address] Assessment Type: RD Re-Assessment Patient Nutrition Acuity: 1-High Follow Up Date: August 31, 2017 Nutritional Comment: 08/28 Pt admitted for alcoholic pancreatitis. Lipase 1119. Pt reportign drinking 1 pt vodka/day with nausea and abd pain following ETHOL binge. Pt reporting 10# wt loss. Wt was stated as 185# last admit 07/03/17 and 180# on standing scale 12/2016. Curretn BMI is within overwt range. Slow wt loss is acceptable but concern is wt loss is r/t drinking and not eating adequately. alb 2.9, K+ 2.9, pt is recieving K+ supplmetn. Elevated AST 90, ALT 85. Pt is curretnly NPO. Will cont to monitor. 08/31: Pt continues on NPO diet. This is day 4 of NPO diet. Pt is recieving IV for fluids and medications. Pt lipase remain elevated 2479. AST and ALT levels have reduced since 08/28. AST 70, ALT 64, however still remaining elevated. Alb 3.2, low BUN 7.0 Whole BG 83. Na 136, K+ 3.3, Pt is taking K+ supplement. Due to pt on his fourth day NPO, recommend nutrition support. Jevity 1.06 kcal/cc with 2290 kcal and 95g protein that will help pt meet nutritional needs. Intial rate at 15ml/hr increase Q 4hr to final rate 90ml/hr. Continue to monitor pt. 09/01: Pt continues on NPO diet order. Pt is recieving IV for fluids and medications. In doctors note pt states he continues to have abdominal pain due to "hunger pains". Pt lipase levels continue to elevate, this morning being at 3002. Elevated AST 77 and ALT 64. Low alb 3.4, BUN 4, and creatinine .6. There has been no change to pt diet. Due to pt fifth day NPO, recommend nutrition support. Look at note from 08/31 for nutritonla needs. Continue to monitor pt progress and diet advancement. CECILIA MCGINNIS September 01, 2017 12:58
[2017-09-02 03:05] VITALS: BP 116/85
[2017-09-02] MEDS: MORPHINE 4 MG/ML SDV IVP PRN ×5 (04:12→23:19)
[2017-09-02 05:48] LABS: PLATELET COUNT, AUTOMATED 156 K/uL (150-450)
[2017-09-02 06:54] VITALS: BP 123/88
[2017-09-02] MEDS: PANTOPRAZOLE SOD 40 MG IV VIAL IVP SCH ×2 (08:36→20:10)
[2017-09-02] MEDS: CITALOPRAM HYDROBROM 20 MG TAB PO SCH (09:41)
--- NOTE | 2017-09-02 10:16 | Hospitalist Progress Note ---
Subjective Progress Notes Subjective He reports some upper abdominal pain, but it feels like "hunger pains". He states his appetite has returned. No nausea. Physical Exam Vital Signs Date Time Temp Pulse Resp B/P (MAP) Pulse Ox O2 Delivery O2 Flow Rate FiO2 09/02/17 06:54 98.0 95 16 123/88 (100) 94 Room Air 08/31/17 11:04 0.5 General Appearance: Alert, Awake Cardiovascular: Regular Rate and Rhythm Respiratory: Clear to Auscultation GI: Other (soft/nontender/BS present) Extremities: Warm, Perfused Result Diagram: 09/02/1753009/02/17530 Item Value Date Time Lipase 2888 U/L H 09/02/17 0531 Albumin 3.8 g/dl 09/02/17530 Total Protein 6.5 gm/dl 09/02/17 0531 Alkaline Phosphatase 75 U/L 09/02/17 0531 Alanine Aminotransferase (ALT/SGPT) 63 U/L H 09/02/17 0531 Aspartate Amino Transf (AST/SGOT) 67 U/L H 09/02/17 0531 Total Bilirubin 1.6 mg/dl H 09/02/17 0531 Magnesium Level 1.9 mg/dl 09/02/17 0531 Calcium Level 9.6 mg/dl 09/02/17 0531 Assessment and Plan Problems: (1) Alcoholic pancreatitis Status: Acute Assessment & Plan: Most likely due to alcohol use. He presented with epigastric pain, nausea and vomiting. CT scan of his abdomen showed acute pancreatitis with an initial lipase of 1119. His Lipase level has been variable and is now on a downward trend. His repeat CT did not show any necrotic areas or cyst formation, but persistent inflammation of pancreatic head and duodenum. Gallbladder ultrasound showed some sludge, but he has no evidence of duct dilation on either his CT or his US. He does have some persistent elevation of his Lipase, but his exam is benign. Will try him on clear liquids today to see if he will tolerate. Watch labs closely. (2) Hypokalemia Status: Acute Assessment & Plan: Resolved with IV fluids. Monitor. (3) Alcohol use disorder, severe, dependence Status: Chronic Assessment & Plan: He plans to go to [facility] voluntarily upon discharge from medical floor. (4) Depression Status: Chronic Assessment & Plan: He is on chronic treatment with citalopram. Will restart today. Exam Sepsis Risk: No Definite Risk Problem Qualifiers (1) Alcoholic pancreatitis: Chronicity: acute Acute pancreatitis complication: no infection or necrosis Qualified Codes: K85.20 - Alcohol induced acute pancreatitis without necrosis or infection HENRY HURD MD September 02, 2017 10:16
[2017-09-02 12:35] VITALS: BP 123/93
[2017-09-02] MEDS: NS(*) 0.9% 1000 ML BAG 1,000 ML IV PRN (15:14)
[2017-09-02 15:19] VITALS: BP 127/94
[2017-09-02 18:44] VITALS: BP 138/93
--- NOTE | 2017-09-02 21:52 | Medical Nutrition Therapy ---
Nutrition Anthropometrics Height (Inches): 67.00 Height (Calculated Centimeters: 170.031486 Weight (Pounds): 171 Weight (Calculated Kilograms): 77.621 Bebo Nutrition Score: Adequate Bebo Nutrition Risk Score: 21 Dietary Referral Nutrition Risk Factors: Unplanned Loss >10lbs Nutrition Risk Comment: food poisioning recent Physical Findings Physical Appearance: Overweight BMI 25-29 Skin Appearance Skin Appearance: Edema Edema Location Modifier: Edema Location: Type of Edema: Degree of Edema: Gastrointestinal Symptoms GI Symtoms: Change in Bowel Pattern Tube Present: Bowel Sounds: Recent Bowel Pattern: Stool Characteristics: Nutrition/Food History No Significant Nutr. HX Alcohol Use: Currently Nutritional Diagnosis Nutritional Risk Acuity 1: NPO/CL > 3 days Nutritional Risk Acuity 2: Unintended Wt Loss >5%/mo (8% wt loss/1 month), Pancreatitis Nutritional Risk Acuity 3: Alcohol abuse Past Medical History: Dependence hypokalemia, depression with anxiety, alcohol pancreatitis Nutritional Acuity: 1-High Nutrition Diagnosis: Increased Nutrient Needs, Excessive Alcohol Intake Nutrition Etiology: Physiological Causes, Alcohol Addiction Nutrition Problem/Etiology/Sym: increased protein needs r/t dx pancreatitis AEB lipase 1119. Excessive alcohol intake r/t alcohol addition AEB reprted 1pt vodka/day intake. 08/31: increased protein needs r/t dx alcohol pacreatitis AEB lipase 2479. MT Energy Requirement: 2362 ([place] Jeor ) Protein Requirement: 1.1 (1.1 g/kg 1.1g protein X 77.621 kg) Fluid Requirement: 2362 (1 ml/kcal) Diet Type: NPO (Nothing by Mouth), Clear Liquids Nutrition Intervention: Incr diet as tolerated Drug/Nutrition Recommendations: Patient Taking K+ Food Likes: lemon tea Nutrition Monitoring & Eval Nutrition Goals: Eat 75-100% Meal RD Patient Assessment Time: [address] Assessment Type: RD Re-Assessment Patient Nutrition Acuity: 1-High Follow Up Date: September 03, 2017 Nutritional Comment: 08/28 Pt admitted for alcoholic pancreatitis. Lipase 1119. Pt reportign drinking 1 pt vodka/day with nausea and abd pain following ETHOL binge. Pt reporting 10# wt loss. Wt was stated as 185# last admit 07/03/17 and 180# on standing scale 12/2016. Curretn BMI is within overwt range. Slow wt loss is acceptable but concern is wt loss is r/t drinking and not eating adequately. alb 2.9, K+ 2.9, pt is recieving K+ supplmetn. Elevated AST 90, ALT 85. Pt is curretnly NPO. Will cont to monitor. 08/31: Pt continues on NPO diet. This is day 4 of NPO diet. Pt is recieving IV for fluids and medications. Pt lipase remain elevated 2479. AST and ALT levels have reduced since 08/28. AST 70, ALT 64, however still remaining elevated. Alb 3.2, low BUN 7.0 Whole BG 83. Na 136, K+ 3.3, Pt is taking K+ supplement. Due to pt on his fourth day NPO, recommend nutrition support. Jevity 1.06 kcal/cc with 2290 kcal and 95g protein that will help pt meet nutritional needs. Intial rate at 15ml/hr increase Q 4hr to final rate 90ml/hr. Continue to monitor pt. 09/01: Pt continues on NPO diet order. Pt is recieving IV for fluids and medications. In doctors note pt states he continues to have abdominal pain due to "hunger pains". Pt lipase levels continue to elevate, this morning being at 3002. Elevated AST 77 and ALT 64. Low alb 3.4, BUN 4, and creatinine .6. There has been no change to pt diet. Due to pt fifth day NPO, recommend nutrition support. Look at note from 08/31 for nutritonla needs. Continue to monitor pt progress and diet advancement. MT 09/02 Diet progression to clear liquids. Pt consumed 30% of first clear liquid meal. Lipase decreased to 2888, High AST/ALT. Follow labs, diet progression, intake, etc. MARYANN CLARK September 02, 2017 21:52
[2017-09-02 23:22] VITALS: BP 123/91
[2017-09-03 03:29] VITALS: BP 125/95
[2017-09-03] MEDS: NS(*) 0.9% 1000 ML BAG 1,000 ML IV PRN (03:32)
[2017-09-03] MEDS: MORPHINE 4 MG/ML SDV IVP PRN ×4 (03:32→17:30)
[2017-09-03 05:46] LABS: PLATELET COUNT, AUTOMATED 166 K/uL (150-450)
[2017-09-03 07:52] VITALS: BP 113/88
[2017-09-03] MEDS: PANTOPRAZOLE SOD 40 MG IV VIAL IVP SCH (09:15)
[2017-09-03] MEDS: CITALOPRAM HYDROBROM 20 MG TAB PO SCH (09:15)
--- NOTE | 2017-09-03 09:57 | Hospitalist Progress Note ---
Subjective Progress Notes Subjective Feeling much better today. Tolerated clear liquids yesterday. Physical Exam Vital Signs Date Time Temp Pulse Resp B/P (MAP) Pulse Ox O2 Delivery O2 Flow Rate FiO2 09/03/17 09:48 93 Room Air 09/03/17 07:52 97.7 83 16 113/88 (96) 08/31/17 11:04 0.5 Intake and Output 09/04/17 06:59 Intake Total 500 ml Balance 500 ml Intake Oral 500 ml # Voids 1 General Appearance: Alert, Awake, No Acute Distress Neuro: No Gross deficits Eyes: PERRLA Cardiovascular: Regular Rate and Rhythm Respiratory: Clear to Auscultation GI: Soft and Non-Tender Extremities: Warm, Perfused Psych: Appropriate Mood & Affect Result Diagram: 09/03/1751409/03/17514 Assessment and Plan Problems: (1) Alcoholic pancreatitis Status: Acute Assessment & Plan: Most likely due to alcohol use. He presented with epigastric pain, nausea and vomiting. CT scan of his abdomen showed acute pancreatitis with an initial lipase of 1119. His Lipase level has been variable and is now on a downward trend. His repeat CT did not show any necrotic areas or cyst formation, but persistent inflammation of pancreatic head and duodenum. Gallbladder ultrasound showed some sludge, but he has no evidence of duct dilation on either his CT or his US. He does have some persistent elevation of his Lipase, but his exam is benign. Will advance his diet today to see if he will tolerate this. Watch labs closely. (2) Hypokalemia Status: Acute Assessment & Plan: Resolved with IV fluids. Monitor. (3) Alcohol use disorder, severe, dependence Status: Chronic Assessment & Plan: He plans to go to [facility] voluntarily upon discharge from medical floor. (4) Depression Status: Chronic Assessment & Plan: He is on chronic treatment with citalopram. Restarted 09/01. Time Spent on Plan of Care: < 30 min Exam Sepsis Risk: No Definite Risk Problem Qualifiers (1) Alcoholic pancreatitis: Chronicity: acute Acute pancreatitis complication: no infection or necrosis Qualified Codes: K85.20 - Alcohol induced acute pancreatitis without necrosis or infection FLY HURD MD September 03, 2017 09:57
[2017-09-03 11:32] VITALS: BP 108/79
[2017-09-03 16:07] VITALS: BP 129/98
[2017-09-03] MEDS ORDERED: oxyCODONE HCL 5 MG CAP PO PRN (18:25)
[2017-09-03 18:55] VITALS: BP 109/78
[2017-09-03] MEDS: PANTOPRAZOLE SOD 40 MG TABEC PO SCH (21:15)
[2017-09-03 23:33] VITALS: BP 120/96
[2017-09-04 03:20] VITALS: BP 126/86
[2017-09-04 06:00] LABS: PLATELET COUNT, AUTOMATED 210 K/uL (150-450)
--- NOTE | 2017-09-04 07:50 | Hospitalist Progress Note ---
Subjective Progress Notes Subjective He reports doing well with soft diet (low fat). Physical Exam Vital Signs Date Time Temp Pulse Resp B/P (MAP) Pulse Ox O2 Delivery O2 Flow Rate FiO2 09/04/17 03:20 98.1 59 16 126/86 (99) 95 Room Air 08/31/17 11:04 0.5 General Appearance: Alert, Awake GI: Soft and Non-Tender Result Diagram: 09/04/17 0536 09/04/17 0536 Item Value Date Time Lipase 2194 U/L H 09/04/17 0536 Albumin 3.4 g/dl L 09/04/17 0536 Total Protein 6.0 gm/dl L 09/04/17 0536 Alkaline Phosphatase 69 U/L 09/04/17 0536 Alanine Aminotransferase (ALT/SGPT) 68 U/L H 09/04/17 0536 Aspartate Amino Transf (AST/SGOT) 62 U/L H 09/04/17 0536 Total Bilirubin 0.9 mg/dl 09/04/17 0536 Assessment and Plan Problems: (1) Alcoholic pancreatitis Status: Acute Assessment & Plan: Most likely due to alcohol use. He presented with epigastric pain, nausea and vomiting. CT scan of his abdomen showed acute pancreatitis with an initial lipase of 1119. His Lipase level has been variable and is now on a downward trend. His repeat CT did not show any necrotic areas or cyst formation, but persistent inflammation of pancreatic head and duodenum. Gallbladder ultrasound showed some sludge, but he has no evidence of duct dilation on either his CT or his US. He does have some persistent elevation of his Lipase, but his exam is benign. Will further advance his diet today to see if he will tolerate. (2) Hypokalemia Status: Acute Assessment & Plan: Resolved with IV fluids. Monitor. (3) Alcohol use disorder, severe, dependence Status: Chronic Assessment & Plan: He plans to go to follow up with his counselor upon discharge. (4) Depression Status: Chronic Assessment & Plan: He is on chronic treatment with citalopram. Restarted 09/01. Exam Sepsis Risk: No Definite Risk Problem Qualifiers (1) Alcoholic pancreatitis: Chronicity: acute Acute pancreatitis complication: no infection or necrosis Qualified Codes: K85.20 - Alcohol induced acute pancreatitis without necrosis or infection HENRY HURD MD September 04, 2017 07:50
[2017-09-04] MEDS: PANTOPRAZOLE SOD 40 MG TABEC PO SCH (08:32)
[2017-09-04] MEDS: CITALOPRAM HYDROBROM 20 MG TAB PO SCH (08:32)
[2017-09-04 08:33] VITALS: BP 114/94
[2017-09-04] MEDS ORDERED: OXYC5TAB38 PO (12:57)
--- NOTE | 2017-09-04 13:03 | Hospitalist Depart ---
Discharge Summary Reason for Hosp/Final Diag: (1) Alcoholic pancreatitis Status: Acute Hospital Course & Plan: Most likely due to alcohol use. He presented with epigastric pain, nausea and vomiting. CT scan of his abdomen showed acute pancreatitis with an initial lipase of 1119. His Lipase level has been variable and is now on a downward trend. His repeat CT did not show any necrotic areas or cyst formation, but persistent inflammation of pancreatic head and duodenum. Gallbladder ultrasound showed some sludge, but he has no evidence of duct dilation on either his CT or his US. He does have some persistent elevation of his Lipase, but his exam was benign and his symptoms had resolved. We further advanced his diet and he did very well. He will be discharged on a low fat diet (and no alcohol). He will follow up with his Primary Care Provider in next 1-2 weeks or sooner if any problems. (2) Alcohol use disorder, severe, dependence Status: Chronic Hospital Course & Plan: He was seen by the substance abuse counselor from [facility] unit. Initially, he planned on going to the [facility] unit following his medical management of his pancreatitis. He discussed this further with his pre-existing counselor at [facility] and has decided to follow up with them. He does understand he will need to maintain complete abstinence from alcohol. (3) Hypokalemia Status: Acute Hospital Course & Plan: Resolved with IV fluids. (4) Depression Status: Chronic Hospital Course & Plan: He is on chronic treatment with citalopram. Departure Weight (Pounds): 171 Weight (Ounces): 2.0 Result Diagram: 09/04/1753509/04/17535 Item Value Date Time White Blood Count 9.2 k/uL 08/28/17 07 Hemoglobin 19.5 g/dL H 08/28/17 07 Hematocrit 56.3 % H 08/28/17 07 Platelet Count 157 K/uL 08/28/17 07 Sodium Level 136 mmol/L L 08/28/17726 Potassium Level 2.9 mmol/L *L 08/28/17726 Chloride Level 91 mmol/L L 08/28/17726 Carbon Dioxide Level 29 mmol/L 08/28/17 07 Blood Urea Nitrogen 8 mg/dl L 08/28/17 07 Creatinine 0.80 mg/dl 08/28/17726 Glomerular Filtration Rate Calc > 60.0 08/28/17726 Random Glucose 99 mg/dl 08/28/17726 Calcium Level 10.3 mg/dl H 08/28/17 07 Total Bilirubin 2.9 mg/dl H 08/28/17 07 Aspartate Amino Transf (AST/SGOT) 90 U/L H 08/28/17 07 Alanine Aminotransferase (ALT/SGPT) 86 U/L H 08/28/17 07 Alkaline Phosphatase 87 U/L 08/28/17 07 Total Protein 8.2 gm/dl 08/28/17 07 Albumin 4.9 g/dl 08/28/17 07 Amylase Level 159 U/L H 08/28/17 0727 Lipase 1119 U/L H 08/28/17 0727 Lipase 5734 U/L H 08/29/17 0516 Lipase 7022 U/L H 08/30/17 0525 Lipase 2479 U/L H 08/31/17 0536 Lipase 3002 U/L H 09/01/17 0537 Lipase 2888 U/L H 09/02/17 0531 Lipase 2434 U/L H 09/03/17 0515 Lipase 2194 U/L H 09/04/17 0536 Albumin 3.4 g/dl L 09/04/17 0536 Total Protein 6.0 gm/dl L 09/04/17 0536 Alkaline Phosphatase 69 U/L 09/04/17 0536 Alanine Aminotransferase (ALT/SGPT) 68 U/L H 09/04/17 0536 Aspartate Amino Transf (AST/SGOT) 62 U/L H 09/04/17 0536 Total Bilirubin 0.9 mg/dl 09/04/17 0536 Calcium Level 9.7 mg/dl 09/04/17 0536 Random Glucose 98 mg/dl 09/04/17 0536 Salicylates Level < 10 mg/L 08/28/17 07 Acetaminophen Level < 10 ug/ml 08/28/17 07 Serum Alcohol < 10 mg/dl 08/28/17726 Urine Cannabinoids Screen Positive 08/28/17 08 Urine Cocaine Screen Negative 08/28/17 08 Urine Benzodiazepines Screen Negative 08/28/17809 Urine Amphetamines Screen Negative 08/28/17 08 Urine Phencyclidine Screen Negative 08/28/17 0810 Ur Tricyclic Antidepressants Screen Negative 08/28/1710 Urine Barbiturates Screen Negative 08/28/1710 Urine Opiates Screen Positive 08/28/17 0810 Imaging PATIENT NAME: Rashaad Nichole : 1980 MR: [id number] V: [id number] EXAM DATE: [id number] ORDERING PHYSICIAN: ANAMARIA ROTH TECHNOLOGIST: Location: [facility] Patient: Rashaad Nichole : 1980 Visit/Account:[id number] Date of Sevice: 08/28/2017 CT abdomen with IV contrast CT pelvis with IV contrast History: Epigastric abdominal pain. History of pancreatitis. COMPARISON STUDIES: CTA chest 05/05/2016. TECHNIQUE: Axial CT images were obtained through the abdomen and pelvis during injection of nonionic iodinated intravenous contrast. Reformatted coronal and sagittal images were also obtained. Contrast: 75 ml of Isovue-370 IV contrast. One of the following dose optimization techniques was utilized in the performance of this exam: Automated exposure control; adjustment of the mA and/ or kV according to the patient's size; or use of an iterative reconstruction technique. Specific details can be referenced in the facility's radiology CT exam operational policy. FINDINGS: Chest bases: Negative Liver: Diffusely hypodense with smooth margins. Greater focal fatty infiltration is seen adjacent to the gallbladder fossa and along the ligamentum teres. Gallbladder and bile ducts: Gallbladder is present. Bile ducts are normal caliber. Spleen: size is normal. Pancreas: Pancreas head is enlarged, margins are indistinct, and peripancreatic fat is hazy. Pancreas body and tail appear normal. No pancreatic ductal dilatation or pseudocyst is observed. Adrenal glands: negative Kidneys: negative Pelvic structures: negative Bowel and mesenteries: The duodenum wall of the 2nd and 3rd segments adjacent to the pancreas head are thickened, and periduodenal fat haziness is observed. Mid and distal small bowel are normal. Normal appendix. Descending and sigmoid colon diverticulosis. Ascites: None Vessels: Mild mural calcification of the infrarenal abdominal aorta and common iliac arteries. Musculoskeletal: Negative Body wall: negative Lymph node assessment: negative IMPRESSION: 1. Acute pancreatitis of the pancreas head, and adjacent duodenitis. 2. Markedly fatty infiltration of the liver. Report Dictated By: Nhi Rosario MD at 08/28/2017 8:58 AM Report E-Signed By: Nhi Rosario MD at 08/28/2017 9:05 AM WSN:[id number] PATIENT NAME: Rashaad Nichole : 1980 MR: [id number] V: [id number] EXAM DATE: ORDERING PHYSICIAN: CARLINE CHAVEZ TECHNOLOGIST: Location: [facility] Patient: Rashaad Nichole : 1980 Visit/Account:[id number] Date of Sevice: 08/30/2017 GALLBLADDER HISTORY: abdominal pain, pancreatitis COMPARISON: CT abdomen and pelvis August 28, 2017 FINDINGS: Gallbladder: Nonlayering echogenic debris seen within the gallbladder may represent cholesterol crystals or small amount of sludge. Liver: There is increased echogenicity throughout the liver which can be seen with fatty infiltration or other infiltrative process. Common duct: Normal, 4.3 mm diameter. Pancreas: Pancreas appears diffusely heterogeneous consistent with the history of pancreatitis Right kidney: No evidence of hydronephrosis. The right kidney measures 10.8 cm in length Upper abdominal aorta and IVC: Patent. Ascites: None visualized. IMPRESSION: Diffusely heterogeneous pancreas consistent with the clinical history of pancreatitis Increased echogenicity throughout the liver which can be seen with fatty infiltration or other infiltrative process Non-layering echogenic material is noted throughout the gallbladder which may represent cholesterol crystals or small amount sludge Report Dictated By: Kim Wei MD at 08/30/2017 11:33 AM Report E-Signed By: Kim Wei MD at 08/30/2017 11:37 AM WSN:[id number] PATIENT NAME: Rashaad Nichole : 1980 MR: [id number] V: [id number] EXAM DATE: ORDERING PHYSICIAN: FLY HURD TECHNOLOGIST: Location: [facility] Patient: Rashaad Nichole : 1980 Visit/Account:[id number] Date of Sevice: 09/01/2017 CT ABDOMEN WITH AND WITHOUT CONTRAST CLINICAL INFORMATION: Pancreatitis TECHNIQUE: Axial CT images were obtained through the abdomen before and after injection of nonionic iodinated intravenous contrast. Reformatted coronal and sagittal images were also obtained. Pre contrast and delayed images were obtained. Dose Lowering Technique One of the following dose optimization techniques was utilized in the performance of this exam: Automated exposure control; adjustment of the mA and/ or kV according to the patient's size; or use of an iterative reconstruction technique. Specific details can be referenced in the facility's radiology CT exam operational policy. CONTRAST: 75ml of IV Isovue-370 contrast. COMPARISON: August 28, 2017. FINDINGS: Lower lung connors: Limited views lower lung field are unremarkable. Liver: There is severe diffuse fatty infiltration throughout the liver. Biliary: Gallbladder is moderately distended Pancreas: Pancreatic head remains enlarged with mild haziness of the adjacent peripancreatic fat although inflammatory changes partially improved. The pancreatic duct is not dilated. There is no evidence of pseudocyst formation or pancreatic necrosis. Spleen: Normal appearance. Adrenal glands: Unremarkable. Kidneys / retroperitoneum: No evidence of nephrolithiasis or hydronephrosis Bowel / peritoneum / mesenteries: The wall of the second and third portions of the duodenum appear thickened adjacent to the pancreatic head and appear similar to the prior study. Diverticulosis in the visualized left-sided colon again seen Vessels: Mild vascular calcifications in the infrarenal abdominal aorta and common iliac arteries atherosclerotic calcification seen throughout a nonaneurysmal abdominal aorta and branches. Musculoskeletal / Body wall: No acute or aggressive osseous abnormality. Lymph node assessment: No pathologic adenopathy identified. There is mild thickening of the lateral conal fascia on the left which has occurred since the prior study suggesting mild adjacent inflammatory change IMPRESSION: 1. The pancreatic head remains enlarged with mild haziness of the adjacent peripancreatic fat although the surrounding inflammatory changes or partially improved. There is no evidence of pseudocyst formation or pancreatic necrosis The wall of the second and third portions of the duodenum appear thickened adjacent to the pancreatic head although similar to the prior study Diverticulosis left-sided colon although no CT evidence of acute diverticulitis There is mild thickening of the lateral conal fascia on the left which has occurred since the prior study suggesting mild adjacent inflammatory change Gallbladder is moderately distended correlation with meal history needed Severe diffuse fatty infiltration throughout the liver 2. 3. Report Dictated By: Kim Wei MD at 09/01/2017 10:00 AM Report E-Signed By: Kim Wei MD at 09/01/2017 10:14 AM WSN:SHAYLEE Condition: Improved Follow-Up Labs: Other (CBC, CMP, Lipase in 1-2 weeks with primary care provider.) Discharge Instructions Home Meds Active Scripts Oxycodone Hcl (OXYCODONE HCL) 5 Mg Tablet, 5-10 MG PO Q6H Y for PAIN, #20 TAB 0 Refills Prov:HENRY HURD MD 09/04/17 Omeprazole (OMEPRAZOLE) 40 Mg Capsule.dr, 40 MG PO QDAY, #15 CAP Prov:ELLY VILLASENORSSE MOBILITY DEVELOPER 07/26/17 Reported Medications Magnesium Oxide (MAGNESIUM) 250 Mg Tablet, 250 MG PO QDAY 08/28/17 Thiamine Mononitrate (VITAMIN B-1) 100 Mg Tablet, 100 MG PO Purchase over the counter. Take for 1 month 07/06/17 Folic Acid (FOLIC ACID) 1 Mg Tablet, 1 MG PO QDAY, TAB Purchase over the counter. Take for 1 month 07/06/17 Multivits,Ca,Minerals/Iron/FA (Thera M Plus Tablet) 1 Each Tablet, 1 TAB PO DAILY 01/15/17 Citalopram Hydrobromide (CITALOPRAM HBR) 40 Mg Tablet, 40 MG PO QDAY, #30 TAB 1 Refill 01/15/17 Discontinued Reported Medications Ibuprofen (IBUPROFEN) 200 Mg Capsule, 1 CAP PO Q2H Y for PAIN, CAPSULE 08/28/17 Diet: Regular, Low Fat Activity: As Tolerated Special Instructions: NO ALCOHOL Follow up with mental health counselor in next 5-7 days. Follow up with Primary Care Provider in next 1-2 weeks or sooner if any problems. Recheck labs at that time. Venous Thromboembolism Antithrombotics Is Pt On Any Antithrombotics?: No Problem Qualifiers (1) Alcoholic pancreatitis: Chronicity: acute Acute pancreatitis complication: no infection or necrosis Qualified Codes: K85.20 - Alcohol induced acute pancreatitis without necrosis or infection HENRY HURD MD September 04, 2017 13:03
--- NOTE | 2017-09-04 13:35 | Medical Nutrition Therapy ---
Nutrition Anthropometrics Height (Inches): 67.00 Height (Calculated Centimeters: 170.073438 Weight (Pounds): 171 Weight (Calculated Kilograms): 77.621 Bebo Nutrition Score: Adequate [place]o Nutrition Risk Score: 21 Dietary Referral Nutrition Risk Factors: Unplanned Loss >10lbs Nutrition Risk Comment: food poisioning recent Physical Findings Physical Appearance: Overweight BMI 25-29 Skin Appearance Skin Appearance: Edema Edema Location Modifier: Edema Location: Type of Edema: Degree of Edema: Gastrointestinal Symptoms GI Symtoms: Change in Bowel Pattern Tube Present: Bowel Sounds: Recent Bowel Pattern: Stool Characteristics: Nutritional Diagnosis Nutritional Risk Acuity 2: Unintended Wt Loss >5%/mo (8% wt loss/1 month), Pancreatitis Nutritional Risk Acuity 3: Alcohol abuse Past Medical History: Dependence hypokalemia, depression with anxiety, alcohol pancreatitis Nutritional Acuity: 2-Moderate Nutrition Diagnosis: Increased Nutrient Needs, Excessive Alcohol Intake Nutrition Etiology: Physiological Causes, Alcohol Addiction Nutrition Problem/Etiology/Sym: increased protein needs r/t dx pancreatitis AEB lipase 1119. Excessive alcohol intake r/t alcohol addition AEB reprted 1pt vodka/day intake. 08/31: increased protein needs r/t dx alcohol pacreatitis AEB lipase 2479. MT Energy Requirement: 2362 ([place] Jeor ) Protein Requirement: 1.1 (1.1 g/kg 1.1g protein X 77.621 kg) Fluid Requirement: 2362 (1 ml/kcal) Diet Type: NPO (Nothing by Mouth), Clear Liquids Nutrition Intervention: Incr diet as tolerated Drug/Nutrition Recommendations: Patient Taking K+ Food Likes: lemon tea Nutritional Education Nutrition Education Topic: Other (pancreatitis and gastritis nutr ed) Learning Readiness: Eager, Interested Teaching Methods: Discussion, Handout Response to Teaching: Return demonstration, Verbalize understanding Teaching Recipient: Patient Nutrition Counselin/7 Provided pancreatitis and gastritis nutr ed. RD talked about low fat foods. Pt was eager to make lifestyle change regarding alcohol intake. He had also created lists of appropriate foods and discussed strategies for following through with new diet. He seemed motivated to make the change. Nutrition Monitoring & Eval RD Patient Assessment Time: [address] Assessment Type: RD Re-Assessment Patient Nutrition Acuity: 2-Moderate Follow Up Date: September 06, 2017 Nutritional Comment: 08/28 Pt admitted for alcoholic pancreatitis. Lipase 1119. Pt reportign drinking 1 pt vodka/day with nausea and abd pain following ETHOL binge. Pt reporting 10# wt loss. Wt was stated as 185# last admit 07/03/17 and 180# on standing scale 12/2016. Dorethan BMI is within overwt range. Slow wt loss is acceptable but concern is wt loss is r/t drinking and not eating adequately. alb 2.9, K+ 2.9, pt is recieving K+ supplmetn. Elevated AST 90, ALT 85. Pt is curretnly NPO. Will cont to monitor. 08/31: Pt continues on NPO diet. This is day 4 of NPO diet. Pt is recieving IV for fluids and medications. Pt lipase remain elevated 2479. AST and ALT levels have reduced since 08/28. AST 70, ALT 64, however still remaining elevated. Alb 3.2, low BUN 7.0 Whole BG 83. Na 136, K+ 3.3, Pt is taking K+ supplement. Due to pt on his fourth day NPO, recommend nutrition support. Jevity 1.06 kcal/cc with 2290 kcal and 95g protein that will help pt meet nutritional needs. Intial rate at 15ml/hr increase Q 4hr to final rate 90ml/hr. Continue to monitor pt. 09/01: Pt continues on NPO diet order. Pt is recieving IV for fluids and medications. In doctors note pt states he continues to have abdominal pain due to "hunger pains". Pt lipase levels continue to elevate, this morning being at 3002. Elevated AST 77 and ALT 64. Low alb 3.4, BUN 4, and creatinine .6. There has been no change to pt diet. Due to pt fifth day NPO, recommend nutrition support. Look at note from 08/31 for nutritonla needs. Continue to monitor pt progress and diet advancement. MT 09/02 Diet progression to clear liquids. Pt consumed 30% of first clear liquid meal. Lipase decreased to 2888, High AST/ALT. Follow labs, diet progression, intake, etc. 09/04 RD and DTR provided low fat diet education for pancreatitis and emphasised the need to decrease alcohol intake. Pt seemed interested in making diet changes. Will be discharged today. -DONNA HOSKINS September 04, 2017 13:35
== END 2017-09-04 14:45 | disposition home or self-care (01) | DRG 439 ==
LOC: ER 07:19 → MED 09:50
PROVIDERS: ADMIT Internal Medicine; ATTEND Internal Medicine
DX: K85.20 Alcohol induced acute pancreatitis without necrosis or infection (principal); F10.288 Alcohol dependence with other alcohol-induced disorder; E87.6 Hypokalemia; F17.210 Nicotine dependence, cigarettes, uncomplicated; K29.80 Duodenitis without bleeding; F32.9 Major depressive disorder, single episode, unspecified; R63.4 Abnormal weight loss; Y90.0 Blood alcohol level of less than 20 mg/100 ml; Z88.5 Allergy status to narcotic agent; Z88.8 Allergy status to other drugs, medicaments and biological substances
CPT/HCPCS: 36415; 36416; 74170; 74177; 76705; 80305; 80320; 80329; 81001; 82040; 82150; 82247; 82310; 82374; 82435; 82565; 82947; 82948; 83690; 83735; 84075; 84132; 84155; 84295; 84450; 84460; 84520; 85025; 99285; C9113; J1200; J2060; J2270; J2405; J2550; J3411; J3475; J3480; J7030; J7050; Q9967